=== PATIENT | male | born 1960 | race Caucasian/White ===

== ENCOUNTER 2018-01-23 02:02 | Observation (INO) ==
[2018-01-23 03:49] LABS: BUN/Creatinine Ratio 18 (6-26); Blood Urea Nitrogen 13 mg/dL (6-20); Calcium 9.3 mg/dL (8.6-10.3); Carbon Dioxide 24 mEq/L (23-29); Chloride 105 mEq/L (98-107); Glucose 285 mg/dL (70-105); Osmolality,Calculated 296 (280-300); Potassium 3.4 mEq/L (3.5-5.1); Sodium 138 mEq/L (136-145); Troponin I < 0.03 ng/mL (< 0.04); eGFR For African Americans > 60 (> 60); eGFR For Non-African Americans > 60 (> 60)
--- NOTE | 2018-01-23 04:29 | Emergency Department Note ---
Disposition Clinical Impression: Chest pain Qualifiers: Chest pain type: unspecified Qualified Code(s): R07.9 - Chest pain, unspecified Disposition: Admitted As Inpatient Condition: Fair Chest Pain HPI - General Chief Complaint: ED Chest Pain Stated Complaint: CP Time Seen by Provider: 01/23/18 02:05 Source: patient Vital Signs Reviewed: Yes Nursing Notes Reviewed: Yes - History of Present Illness HPI Narrative: 58-year-old male presents to emergency department after having chest pain a few hours ago in the mid sternal region. Patient states that it feels similar to when he had recent myocardial infarctions. Patient stated that the pain has resolved now. Patient denies any fever, cough, hemoptysis. Severity scale (1-10): 3 - Related Data Home Medications Medication Instructions Recorded Confirmed ALPRAZolam [Xanax 0.5 MG Tablet] 0.5 mg PO BID 07/29/15 01/23/18 Albuterol Sulfate [Albuterol 2 puff IH Q4HR PRN 07/29/15 01/23/18 Inhaler] Budesonide/Formoterol 160/4.5 2 puff IH BIDR PRN 07/29/15 01/23/18 [Symbicort 160/4.5] Fluticasone Propionate [Flovent 1 puff IH BID PRN 07/29/15 01/23/18 Diskus] Aspirin Enteric Coated [Aspirin EC] 81 mg PO DAILY 07/31/15 01/23/18 GlipiZIDE XL (24 HR) [Glucotrol XL] 5 mg PO DAILY 07/31/15 01/23/18 HYDROcodone/Acet 5/325 mg [[place] 1 tab PO Q6H PRN 12/15/15 01/23/18 5-325 mg] Montelukast [Singulair] 10 mg PO DAILY 12/15/15 01/23/18 Rosuvastatin Calcium [Crestor] 10 mg PO DAILY 07/26/16 01/23/18 Metformin HCl [Metformin HCl ER] 500 mg PO DAILY 01/23/18 01/23/18 Allergies Allergy/AdvReac Type Severity Reaction Status Date / Time prednisone AdvReac Mild "ELEVATED Verified 07/26/16 15:55 SUGAR" aspirin AdvReac Nausea Verified 07/26/16 15:55 atorvastatin [From Lipitor] AdvReac Nausea Verified 07/26/16 15:55 metformin AdvReac Nausea Verified 07/26/16 15:55 metoprolol AdvReac Nausea Verified 07/26/16 15:55 All systems ED: reviewed and negative except as stated. Review of Systems: As Per HPI Constitutional: Denies: fever Cardiovascular: Reports: chest pain. Denies: palpitations, syncope Respiratory: Denies: cough, dyspnea, wheezes Gastrointestinal: Denies: abdominal pain, nausea, vomiting Musculoskeletal: Denies: back pain Integumentary: Denies: rash Neurological: Denies: headache, weakness, numbness, paresthesias Chest Pain PMH - Past Medical History Medical history: Reports: asthma, CHF, COPD, diabetes, GERD, hyperlipidemia, hypertension, myocardial infarction, other Surgical history: Reports: other Psychiatric history: Reports: no psych history - Social History Smoking Status: Current some day smoker Alcohol use: Reports: occasionally Drug use: Reports: none Physical Exam - General General appearance: alert, in no apparent distress - Head Head exam: atraumatic, normocephalic - Eye Eye exam: Present: EOMI. Absent: conjunctival injection - ENT ENT exam: normal oropharynx - Neck Neck exam: Present: full ROM, trachea midline - Chest Chest inspection: Present: symmetric chest wall rise - Respiratory Respiratory exam: Present: other (Rhonchi). Absent: respiratory distress - Cardiovascular Cardiovascular exam: Present: regular rate, normal rhythm, normal heart sounds - Abdominal Exam Abdominal exam: Present: soft, Non-Tender - Extremities Exam Extremities exam: Absent: pedal edema - Neurological Exam Neurological exam: Present: alert, oriented X3 - Psychiatric Psychiatric exam: Present: normal affect, normal mood - Skin Skin exam: Present: warm, dry, intact Course Vital Signs Temperature 97.6 F 01/23/18 02:08 Pulse Rate 60 01/23/18 02:08 Respiratory Rate 20 01/23/18 02:08 Blood Pressure 158/95 01/23/18 02:08 O2 Sat by Pulse Oximetry 96 01/23/18 02:08 Temperature 97.6 F 01/23/18 02:08 Pulse Rate 62 01/23/18 05:06 Respiratory Rate 20 01/23/18 05:06 Blood Pressure 132/88 01/23/18 05:06 O2 Sat by Pulse Oximetry 96 01/23/18 05:06 Oxygen Delivery Oxygen Delivery Room Air Chest Pain - MDM Narrative Medical decision making narrative: 58-year-old male presents to emergency department with chest pain. Patient was given aspirin via EMS. Patient not in any acute distress here, hemodynamically stable. Patient has multiple risk factors and has heart score of 4. EKG does not reveal any abnormalities. Troponin is negative. Chest x-ray is normal. Patient was mildly hypokalemic. We replaced the potassium. Initially, patient' s blood pressure is 158/95. It is currently 138/88. We will administer nitroglycerin paste. At this time, we will admit this patient to the hospital for observation. Patient agreed with plan. Chest X-Ray 01/23/18 03:03 IMPRESSION: Negative portable chest. D/ / Anthony Benz MD / Anthony Benz MD Interpreting Provider: Anthony Benz MD Vital Signs Temperature 97.6 F 01/23/18 02:08 Pulse Rate 60 01/23/18 02:08 Respiratory Rate 20 01/23/18 02:08 Blood Pressure 158/95 01/23/18 02:08 O2 Sat by Pulse Oximetry 96 01/23/18 02:08 Temperature 97.6 F 01/23/18 02:08 Pulse Rate 69 01/23/18 03:08 Respiratory Rate 97 01/23/18 02:13 Blood Pressure 138/88 01/23/18 03:08 O2 Sat by Pulse Oximetry 92 01/23/18 03:08 Oxygen Delivery Oxygen Delivery Room Air - Lab Data Result diagrams: 01/23/18 05:15 01/23/18 03:03 Lab Results 01/23/18 01/23/18 Range/Units 03:03 03:03 Sodium 138 (136-145) mEq/L Potassium 3.4 L (3.5-5.1) mEq/L Chloride 105 (98-107) mEq/L Carbon Dioxide 24 (23-29) mEq/L BUN 13 (6-20) mg/dL Creatinine 0.71 (0.70-1.30) mg/dL Est GFR ( Amer) > 60 (> 60) Est GFR (Non-Af Amer) > 60 (> 60) BUN/Creatinine Ratio 18 (6-26) Glucose 285 H (70-105) mg/dL Calculated Osmolality 296 (280-300) Calcium 9.3 (8.6-10.3) mg/dL Troponin I < 0.03 (< 0.04) ng/mL B-Natriuretic Peptide 10 (Less than 100) pg/mL - EKG Data EKG attestation: Yes I reviewed and interpreted this EKG. EKG results narrative: 01/23/2018 2:06 Ventricular rate 61 bpm, CT interval 167 ms, QRS religious 111 ms, QT 413 ms, QTC 450 ms, hepatitis deviation. Sinus rhythm with a ventricular rate of 61 bpm. There is no evidence of any ischemic changes on this electrocardiogram in comparison with one performed on 08/16/2009. Heart Score - Score History: Moderately Suspicious EKG: Normal Age: 45-65 Risk Factors: Equal/Greater than 3 risk factor or history of atherosclerotic disease Troponin: Less than normal limit HEART Score Total: 4 Attestation Statement - Attestation Attestation: I examined this patient and my medical decision-making was reviewed with the Resident Physician. I agree with the documented findings, disposition and treatment plan as described except to the extent set forth below. Findings consistent with chest pain. He does have typical chest pain symptoms. Nitroglycerin as well as aspirin administered. EKG is nondiagnostic at this time. The patient will be admitted for further management. The
[2018-01-23] MEDS ORDERED: *HR* Dextrose 50 % in Water (Syg) 50 ML SYRINGE IVP PRN ×2 (04:43→07:58)
[2018-01-23] MEDS ORDERED: Dextrose Gel 15 GM/37.5 ML TUBE PO PRN ×4 (04:43→07:58)
[2018-01-23] MEDS ORDERED: D5% in Water 1,000 ML IVC PRN ×2 (04:43→07:58)
[2018-01-23] MEDS ORDERED: Nitroglycerin 1 INCH/GM PACKET TP ONE (04:58)
[2018-01-23 05:27] LABS: Basophils # 0.1 K/mcL (0.0-0.2); Basophils % 0.6 %; Eosinophils # 0.4 K/mcL (0.0-0.6); Hematocrit 50.5 % (37.5-50.1); Hemoglobin 17.1 g/dL (12.9-16.9); Immature Granulocytes % 0.4 % (0-4); Lymphocytes # 4.2 K/mcL (0.6-4.6); Lymphocytes % 38.9 %; Mean Corpuscular HGB Conc 33.9 g/dL (31.6-35.5); Mean Corpuscular Hemoglobin 29.8 pg (28.0-33.3); Mean Platelet Volume 10.2 fL (9.4-12.4); Monocytes % 9.5 %; Neutrophils # 5.1 K/mcL (1.6-8.9); Platelet Count 179 K/mcL (140-400); Red Blood Count 5.74 M/mcL (4.19-5.50); Red Cell Distribution Width 12.7 % (11.5-14.5); Segmented Neutrophils % 46.6 %
[2018-01-23] MEDS ORDERED: Insulin LISPRO 300 UNITS/3 ML VIAL SQ SCH (06:00)
[2018-01-23] MEDS ORDERED: Naloxone 0.4 MG/ML INJ IVP PRN (07:52)
[2018-01-23] MEDS ORDERED: FLUTICASONE PROPIONATE IH PRN (07:57)
--- NOTE | 2018-01-23 07:59 | Internal Med History&Physical ---
Date of Encounter: 01/23/18 Time of Encounter: 07:54 Internal Medicine - H&P: HPI History of present illness: Mr. Garner is a 58 year old male Past Med Surg Social Fam HX - Past Medical History Medical history: asthma, CHF, COPD, diabetes, GERD, hyperlipidemia, hypertension , myocardial infarction, other Psychiatric history: no psych history - Past Surgical History Surgical History: other - Social History Smoking Status: Current some day smoker Packs per day: 0.25 Smokeless Tobacco Status: No Alcohol use: occasionally Drug use: none - Family History Son Adopted: No Family Member Ethnicity: Non- Living Status: Still Living Hx Family Cardiac Disorders: No Hx Family Respiratory Disorders: No Hx Family Cancer: No Hx Family GI Disorders: No Hx Family Endocrine Disorder: No Hx Family Neuromuscular Disorders: No Hx Family Neurologic Disorders: No Hx Family HEENT Disorders: No Hx Family Autoimmune Disorders: No Mother Living Status: Hx Family Cardiac Disorders: Yes Hx Family Endocrine Disorder: Yes (DM) Internal Medicine - H&P: Meds ALPRAZolam [Xanax 0.5 MG Tablet] 0.5 mg PO BID PRN 07/29/15 [History] Albuterol Sulfate [Albuterol Inhaler] 2 puff IH Q4HR PRN 07/29/15 [History] Budesonide/Formoterol 160/4.5 [Symbicort 160/4.5] 2 puff IH BIDR PRN 07/29/15 [ History] Fluticasone Propionate [Flovent Diskus] 1 puff IH BID PRN 07/29/15 [History] Aspirin Enteric Coated [Aspirin EC] 81 mg PO DAILY 07/31/15 [History] GlipiZIDE XL (24 HR) [Glucotrol XL] 5 mg PO DAILY 07/31/15 [History] HYDROcodone/Acet 5/325 mg [[place] 5-325 mg] 1 tab PO Q6H PRN 12/15/15 [History] Montelukast [Singulair] 10 mg PO DAILY 12/15/15 [History] Rosuvastatin Calcium [Crestor] 10 mg PO DAILY 07/26/16 [History] Metformin HCl [Metformin HCl ER] 500 mg PO DAILY 01/23/18 [History] 3 Allergy/AdvReac Type Severity Reaction Status Date / Time prednisone AdvReac Mild "ELEVATED Verified 07/26/16 15:55 SUGAR" aspirin AdvReac Nausea Verified 07/26/16 15:55 atorvastatin [From Lipitor] AdvReac Nausea Verified 07/26/16 15:55 metformin AdvReac Nausea Verified 07/26/16 15:55 metoprolol AdvReac Nausea Verified 07/26/16 15:55 All Systems PM: A 10-system review of systems was performed and is negative for pertinent findings except as documented above in the HPI. - Constitutional Vitals: Temp Pulse Resp BP Pulse Ox 97.5 F L 57 18 115/78 94 01/23/18 06:52 01/23/18 06:52 01/23/18 06:52 01/23/18 06:52 01/23/18 06:52 Internal Med - H&P Results - Labs CBC & Chem 7: 01/23/18 05:15 01/23/18 03:03 Labs: Short CBC 01/23/18 Range/Units 05:15 WBC 10.9 (4.3-11.1) K/mcL Hgb 17.1 H (12.9-16.9) g/dL Hct 50.5 H (37.5-50.1) % Plt Count 179 (140-400) K/mcL Neutrophils # 5.1 (1.6-8.9) K/mcL Cardiac Enzymes 01/23/18 Range/Units 05:15 Troponin I < 0.03 (< 0.04) ng/mL - Time Spent With Patient Total time spent is greater than 50% in coordination of care (as documented) at patient's floor/unit and/or counseling patient:
--- NOTE | 2018-01-23 08:15 | Internal Med History&Physical ---
Date of Encounter: 01/23/18 Time of Encounter: 08:09 Internal Medicine - H&P: HPI Chief complaint: CP Admitted From: Home Plans for Post Hospital Care: Home History of present illness: Mr. Garner is a 58 year old male with past medical history of coronary artery disease status post stents 3, diabetes, COPD, hyperlipidemia, thyroid nodules Patient presented to the emergency room chief complaint substernal chest pain started at midnight related 7 x 10 associated with nausea and lightheadedness but nonradiating. Patient checked his blood pressure that was found to be high cannot recall the number and low pulse rate 50s. He came to ER continued to have pain therefore ER physician nitro paste started. In ER troponin negative, EKG with no acute finding. ER physician called on-call hospitalists for the admission to perform cardiac evaluation because of several risk factors. During my evaluation chest pain 0 x 10 but patient has severe headache and requesting to remove Nitropaste. Patient denies fever, chills, nausea, vomiting, dizziness, palpitation, abdominal pain, urinary bowel complaint. Past Med Surg Social Fam HX - Past Medical History Medical history: asthma, CHF, COPD, diabetes, GERD, hyperlipidemia, hypertension , myocardial infarction, other Psychiatric history: no psych history - Past Surgical History Surgical History: other - Social History Smoking Status: Current some day smoker Packs per day: 0.25 Smokeless Tobacco Status: No Alcohol use: occasionally Drug use: none - Family History Son Adopted: No Family Member Ethnicity: Non- Living Status: Still Living Hx Family Cardiac Disorders: No Hx Family Respiratory Disorders: No Hx Family Cancer: No Hx Family GI Disorders: No Hx Family Endocrine Disorder: No Hx Family Neuromuscular Disorders: No Hx Family Neurologic Disorders: No Hx Family HEENT Disorders: No Hx Family Autoimmune Disorders: No Mother Living Status: Hx Family Cardiac Disorders: Yes Hx Family Endocrine Disorder: Yes (DM) Internal Medicine - H&P: Meds ALPRAZolam [Xanax 0.5 MG Tablet] 0.5 mg PO BID PRN 07/29/15 [History] Albuterol Sulfate [Albuterol Inhaler] 2 puff IH Q4HR PRN 07/29/15 [History] Budesonide/Formoterol 160/4.5 [Symbicort 160/4.5] 2 puff IH BIDR PRN 07/29/15 [ History] Fluticasone Propionate [Flovent Diskus] 1 puff IH BID PRN 07/29/15 [History] Aspirin Enteric Coated [Aspirin EC] 81 mg PO DAILY 07/31/15 [History] GlipiZIDE XL (24 HR) [Glucotrol XL] 5 mg PO DAILY 07/31/15 [History] HYDROcodone/Acet 5/325 mg [[place] 5-325 mg] 1 tab PO Q6H PRN 12/15/15 [History] Montelukast [Singulair] 10 mg PO DAILY 12/15/15 [History] Rosuvastatin Calcium [Crestor] 10 mg PO DAILY 07/26/16 [History] Metformin HCl [Metformin HCl ER] 500 mg PO DAILY 01/23/18 [History] 3 Allergy/AdvReac Type Severity Reaction Status Date / Time prednisone AdvReac Mild "ELEVATED Verified 07/26/16 15:55 SUGAR" aspirin AdvReac Nausea Verified 07/26/16 15:55 atorvastatin [From Lipitor] AdvReac Nausea Verified 07/26/16 15:55 metformin AdvReac Nausea Verified 07/26/16 15:55 metoprolol AdvReac Nausea Verified 07/26/16 15:55 All Systems PM: as documented above in the HPI. - Constitutional Vitals: Temp Pulse Resp BP Pulse Ox 97.5 F L 57 18 115/78 94 01/23/18 06:52 01/23/18 06:52 01/23/18 06:52 01/23/18 06:52 01/23/18 06:52 Exam: General appearance: No acute distress, A&O X 3 Head exam: Atraumatic Eye exam: EOMI, PERRLA ENT exam: Moist oral mucosa Neck nontender, supple Respiratory exam: Clear to auscultation bilaterally Cardiovascular exam: Regular rate and rhythm, no systolic murmur Abdominal exam: Soft, nontender, nondistended, positive bowel sounds Extremities exam: No calf tenderness, no pedal edema Present: Skin-no rash, warm, dry, intact Neurological exam: Alert, awake, oriented 3, CN II-XII intact, no focal deficits. No facial droop. Normal speech. Internal Med - H&P Results - Labs CBC & Chem 7: 01/23/18 05:15 01/23/18 03:03 Labs: Short CBC 01/23/18 Range/Units 05:15 WBC 10.9 (4.3-11.1) K/mcL Hgb 17.1 H (12.9-16.9) g/dL Hct 50.5 H (37.5-50.1) % Plt Count 179 (140-400) K/mcL Neutrophils # 5.1 (1.6-8.9) K/mcL Cardiac Enzymes 01/23/18 Range/Units 05:15 Troponin I < 0.03 (< 0.04) ng/mL - Assessment and plan (1) Chest pain Current Visit: Yes Status: Acute Assessment and plan: Rule out ACS. Patient has multiple risk factor CAD status post 3 stent, diabetes mellitus, hypertension, hyperlipidemia, chronic a smoker, positive family history for cardiac disease. Initial troponin and EKG with no acute finding. Serial troponin, telemetry bed, continue aspirin, statin, nitroglycerin, oxygen. Patient needs cardiac ischemic workup therefore Echocardiogram and nuclear stress tests ordered. Retail Business Analyst consulted. Qualifiers: Chest pain type: other chest pain Qualified Code(s): R07.89 - Other chest pain; R07.8 - Other chest pain (2) Diabetes mellitus Current Visit: Yes Status: Chronic Assessment and plan: Accu-Chek, SSI. Diabetes diet Qualifiers: Diabetes mellitus type: type 2 Diabetes mellitus intermediate manager insulin use: without jail use Diabetes mellitus complication status: without complication Qualified Code(s): E11.9 - Type 2 diabetes mellitus without complications (3) Hypertension Current Visit: Yes Status: Chronic Assessment and plan: Monitor. Continue home medicine Qualifiers: Hypertension type: essential hypertension Qualified Code(s): I10 - Essential (primary) hypertension (4) DVT prophylaxis Current Visit: Yes Status: Acute Assessment and plan: SCDs - Time Spent With Patient Total time spent is greater than 50% in coordination of care (as documented) at patient's floor/unit and/or counseling patient: 25 - 35 minutes
[2018-01-23] MEDS: Aspirin Enteric Coated 81 MG Tablet PO SCH (08:55)
[2018-01-23] MEDS: *HR* HYDROcodone/Acet 5/325 mg TABLET PO PRN ×3 (08:56→22:02)
[2018-01-23] MEDS: Budesonide/Formoterol 160/4.5 MDI IH SCH ×2 (11:25→19:47)
[2018-01-23] MEDS: Insulin LISPRO 300 UNITS/3 ML VIAL SQ SCH ×2 (12:05→16:52)
[2018-01-23] MEDS: ALPRAZolam 0.5 MG TABLET PO PRN ×2 (14:43→22:02)
--- NOTE | 2018-01-23 15:34 | Cardiology Consult Note ---
Date of Encounter: 01/23/18 Time of Encounter: 15:30 Assessment and Plan (1) Chest pain Current Visit: No Status: Resolved Atypical but with known extensive hx of CAD. Chemical stress test Qualifiers: Chest pain type: unspecified Qualified Code(s): R07.9 - Chest pain, unspecified Discussion w patient/family: The assessment and plan as outlined above was discussed with the patient and/or family members who expressed understanding and agreement. All questions were answered. Thank you for involving us in the care of your patient. Please call with any questions. History of Present Illness Consult date: 01/23/18 Consult reason: Chest Pain Chief complaint: Chest Pain History of present illness: Mr. Garner is a 58 year old male known Non obstructive CAD involving the proximal LAD (LHC 2015), previous PCI of the proximal RCA with a preserved EF ( 55-60% TTE 2015) presents with chest pain atypical in presentation while resting RSCP non radiating resolved in few 45 minutes. D/W patient the possibility of progression of disease and he accepts a stress test to evaluate for ischemia. Stress test shows previous infarct and mild celena-infarct ischemia involving the mid to apical inferior, inferior lateral, and apex segment. Troponin negative x 3. EKG shows SR with non-specific EKG changes that are unchanged from previous EKG. LHC 12/2015 showed triple vessel CAD. LV normal and has normal contractility EF 55%. Pt had successful PTCA/RERE placement in proximal RCA. LMCA-20% stenosis, LAD-50% proximal and 40% mid, circ-mid patent stents (20% ISR), 30% proximal, 100% 2nd marginal-previous stent occluded. TTE 12/2015 showed an EF of 55-60%. Stress test results reviewed with patient and family. LHC versus medical management discussed with patient. LHC indications, alternatives, risks, and benefits reviewed. Patient prefers medical management. Add Imdur. (Dr. Ashley will also discuss with patient.) Indur indication, use, SE reviewed. He is currently pain free. F/u closely with Dr. Clinton. Past Med Surg Social Fam HX - Past Medical History Medical history: asthma, CHF, COPD, diabetes, GERD, hyperlipidemia, hypertension , myocardial infarction, other Psychiatric history: no psych history - Past Surgical History Surgical History: other - Social History Smoking Status: Current some day smoker Packs per day: 0.25 Smokeless Tobacco Status: No Alcohol use: occasionally Drug use: none - Family History Son Adopted: No Family Member Ethnicity: Non- Living Status: Still Living Hx Family Cardiac Disorders: No Hx Family Respiratory Disorders: No Hx Family Cancer: No Hx Family GI Disorders: No Hx Family Endocrine Disorder: No Hx Family Neuromuscular Disorders: No Hx Family Neurologic Disorders: No Hx Family HEENT Disorders: No Hx Family Autoimmune Disorders: No Mother Living Status: Hx Family Cardiac Disorders: Yes Hx Family Endocrine Disorder: Yes (DM) Medications and Allergies ALPRAZolam [Xanax 0.5 MG Tablet] 0.5 mg PO BID PRN 07/29/15 [History] Budesonide/Formoterol 160/4.5 [Symbicort 160/4.5] 2 puff IH BIDR PRN 07/29/15 [ History] Fluticasone Propionate [Flovent Diskus] 1 puff IH BID PRN 07/29/15 [History] Aspirin Enteric Coated [Aspirin EC] 81 mg PO DAILY 07/31/15 [History] HYDROcodone/Acet 5/325 mg [[place] 5-325 mg] 1 tab PO Q6H PRN 12/15/15 [History] Montelukast [Singulair] 10 mg PO DAILY 12/15/15 [History] Rosuvastatin Calcium [Crestor] 10 mg PO DAILY 07/26/16 [History] Albuterol Sulfate [Albuterol Inhaler] 2 puff IH Q4HR PRN 01/23/18 [History] Dulaglutide [Trulicity] 0.5 ml SQ QWEEK 01/23/18 [History] GlipiZIDE [Glipizide ER] 10 mg PO BID 01/23/18 [History] Metformin HCl [Metformin HCl ER] 500 mg PO DAILY 01/23/18 [History] Nitroglycerin [Nitrostat] 0.4 mg PO Q5MIN PRN 01/23/18 [History] 3 Allergy/AdvReac Type Severity Reaction Status Date / Time atorvastatin [From Lipitor] AdvReac Nausea Verified 01/23/18 09:12 metoprolol AdvReac Nausea Verified 01/23/18 09:12 All Systems Review: The remainder of the systems were reviewed and are negative Physical Examination General: Conversant, No Apparent Distress HEENT: Atraumatic, Normocephaly, Mucus Membranes Moist Neck: No JVD, Normal carotid pulses Cardiac: Reg Rate and Rhythm, Normal S1 and S2, No Murmur Lungs: Normal Breath Sounds, No Wheeze, Rales, Rhonchi Neuro: Alert and responsive, No focal deficits noted Abdomen: Soft, Non-Tender Skin: No rashes noted on visualized skin Musculoskeletal: No Chest Wall Tenderness Extremities: No Clubbing, No Cyanosis, No Edema, Normal Pulses Results 01/23/18 05:15 01/23/18 03:03 Lab Results 01/23/18 01/23/18 01/23/18 05:15 05:15 12:32 WBC 10.9 Hgb 17.1 H Hct 50.5 H Plt Count 179 Troponin I < 0.03 < 0.03 Consult Discharge Plan - Plan Referrals: Villa Chan DO [Primary Care Provider] - 01/30/18 1:30 pm (Please follow up as schedule...)
[2018-01-24] MEDS: Insulin LISPRO 300 UNITS/3 ML VIAL SQ SCH ×5 (00:32→21:55)
[2018-01-24 05:25] LABS: Basophils # 0.1 K/mcL (0.0-0.2); Basophils % 0.6 %; Eosinophils # 0.3 K/mcL (0.0-0.6); Eosinophils % 2.3 %; Hemoglobin 15.9 g/dL (12.9-16.9); Immature Granulocytes % 0.4 % (0-4); Lymphocytes % 37.1 %; Mean Corpuscular HGB Conc 33.8 g/dL (31.6-35.5); Mean Corpuscular Hemoglobin 29.6 pg (28.0-33.3); Mean Corpuscular Volume 87.4 fL (83.0-100.0); Mean Platelet Volume 10.5 fL (9.4-12.4); Monocytes # 0.9 K/mcL (0.0-1.3); Monocytes % 8.8 %; Neutrophils # 5.5 K/mcL (1.6-8.9); Platelet Count 170 K/mcL (140-400); Red Blood Count 5.38 M/mcL (4.19-5.50); Red Cell Distribution Width 12.7 % (11.5-14.5); Segmented Neutrophils % 50.8 %
[2018-01-24] MEDS ORDERED: Regadenoson 0.4 MG/5 ML SYRINGE IVP ONE (05:40)
[2018-01-24 05:47] LABS: BUN/Creatinine Ratio 21 (6-26); Blood Urea Nitrogen 13 mg/dL (6-20); Calcium 9.2 mg/dL (8.6-10.3); Carbon Dioxide 24 mEq/L (23-29); Chloride 109 mEq/L (98-107); Chol/HDL Ratio 6.5 (0-4.9); Cholesterol 196 mg/dL (< 200); Glucose 159 mg/dL (70-105); HDL Cholesterol 30 mg/dL (40-59); LDL Cholesterol,Calculated 136 mg/dL (0-99); Osmolality,Calculated 293 (280-300); Potassium 4.2 mEq/L (3.5-5.1); Sodium 140 mEq/L (136-145); Triglycerides 150 mg/dL (< 150); eGFR For African Americans > 60 (> 60); eGFR For Non-African Americans > 60 (> 60)
[2018-01-24] MEDS: *HR* HYDROcodone/Acet 5/325 mg TABLET PO PRN ×2 (07:25→17:10)
[2018-01-24] MEDS: ALPRAZolam 0.5 MG TABLET PO PRN ×2 (09:57→22:07)
[2018-01-24] MEDS: Aspirin Enteric Coated 81 MG Tablet PO SCH (09:57)
[2018-01-24] MEDS: Budesonide/Formoterol 160/4.5 MDI IH SCH ×2 (11:02→20:43)
--- NOTE | 2018-01-24 12:48 | Internal Med Progress Note ---
Date of Encounter: 01/24/18 Time of Encounter: 12:43 - Assessment and plan (1) Chest pain Current Visit: Yes Status: Acute Assessment and plan: 58-year-old male with extensive cardiac disease including triple-vessel disease with stents presented with acute onset of chest pain. - CV risk factors including smoking, hyperlipidemia, diabetes, and family history of CAD. Risk factor modification including smoke sensation, continue lipid-lowering agent, and the tight control blood sugar were discussed with patient. Repeat her lipid panel showed LDL around 140( target <70), patient cannot tolerate statins because of severe muscle pain, currently he is on low dose of rosuvastatin 10 mg daily, consider adding Zetia if it is okay with patient insurance. Blood pressure was well controlled, no need to add any MARY inhibitor or beta sury. Continue home aspirin. - TTE's this morning revealed normal EF, moderate diastolic dysfunction, patient euvolemic on physical exam. - Pending stress nuclear test. - Cardiology following. Qualifiers: Chest pain type: other chest pain Qualified Code(s): R07.89 - Other chest pain; R07.8 - Other chest pain (2) Diabetes mellitus Current Visit: Yes Status: Chronic Assessment and plan: Glucose well controlled, continue current insulin regimen. Qualifiers: Diabetes mellitus type: type 2 Diabetes mellitus terminal carman insulin use: without halfway use Diabetes mellitus complication status: without complication Qualified Code(s): E11.9 - Type 2 diabetes mellitus without complications (3) Hypertension Current Visit: Yes Status: Chronic Assessment and plan: BP well controlled, no need for medications, continue low-salt diet. Qualifiers: Hypertension type: essential hypertension Qualified Code(s): I10 - Essential (primary) hypertension (4) DVT prophylaxis Current Visit: Yes Status: Acute Assessment and plan: SCDs - Time Spent With Patient Total time spent is greater than 50% in coordination of care (as documented) at patient's floor/unit and/or counseling patient: Greater than 35 minutes - Subjective Interval history: Patient seen and examined in room, he has no chest pain currently. - Constitutional Vitals: Temp Pulse Resp BP Pulse Ox 98.2 F 63 16 110/77 93 01/24/18 11:02 01/24/18 11:02 01/24/18 11:02 01/24/18 11:02 01/24/18 11:02 General appearance: Present: A&O X 3 Exam: PHYSICAL EXAMINATION: GENERAL APPEARANCE: The patient is alert, oriented and in no acute distress. HEENT: Head is normocephalic. The sinuses are nontender. Pupils are equal and reactive. The nares are patent. Oropharynx clear without lesions. NECK: Supple without lymphadenopathy. HEART: Regular rate and rhythm. LUNGS: No crackles or wheezes are heard. ABDOMEN: Soft, nontender, nondistended with good bowel sounds heard. Inguinal area is normal. EXTREMITIES: Without cyanosis, clubbing or edema. NEUROLOGICAL: Gross nonfocal. SKIN: Warm and dry without any rash. Internal Medicine: Result - Labs CBC & Chem 7: 01/24/18 04:59 01/24/18 04:59 Labs: Short CBC 01/24/18 Range/Units 04:59 WBC 10.7 (4.3-11.1) K/mcL Hgb 15.9 (12.9-16.9) g/dL Hct 47.0 (37.5-50.1) % Plt Count 170 (140-400) K/mcL Neutrophils # 5.5 (1.6-8.9) K/mcL BMP 01/24/18 04:59 Sodium 140 Potassium 4.2 Chloride 109 H Carbon Dioxide 24 BUN 13 Creatinine 0.62 L Glucose 159 H Calcium 9.2 Cardiac Enzymes 01/23/18 01/23/18 Range/Units 12:32 18:03 Troponin I < 0.03 0.03 (< 0.04) ng/mL - Impressions Impressions Echocardiogram 01/23/18 07:56 Impressions: LVEF 60-65%. Normal LV chamber size, wall thickness and function. Moderate left ventricular diastolic dysfunction. Normal right ventricular structure and function. No evidence of pulmonary hypertension. No significant valvular dysfunction. Left Ventricular Wall Motion: Rest Echo Findings All wall segments showed normal motion. Findings: Study Quality * Technically adequate exam. ECG Findings * Normal sinus rhythm. Left Ventricle * LVEF 60-65%. * Normal LV chamber size, wall thickness and function. * Moderate left ventricular diastolic dysfunction. Right Ventricle * Normal right ventricular structure and function. Left Atrium * Mildly dilated left atrium. Right Atrium * Normal right atrial size. Aortic Valve * Aortic valve not well visualized. * No aortic regurgitation. * No aortic stenosis. Mitral Valve * Normal mitral valve structure and function. * No mitral regurgitation. * No mitral stenosis. Tricuspid Valve * Normal tricuspid valve structure and function. * Trace tricuspid regurgitation. * No evidence of pulmonary hypertension. Pulmonic Valve * Pulmonic valve is not well visualized. * No pulmonic regurgitation. Aorta * Normally sized aortic root. Pericardium * The pericardium appears normal. IVC * Normal IVC dimensions and inspiratory collapse. Pulmonary Artery * Normal visualized portions of the main pulmonary artery. Consult Discharge Plan - Plan Referrals: Villa Chan DO [Primary Care Provider] - 01/30/18 1:30 pm (Please follow up as schedule...)
--- NOTE | 2018-01-24 13:31 | Cardiology Progress Note ---
Date of Encounter: 01/24/18 Time of Encounter: 13:29 Assessment and Plan (1) Chest pain Current Visit: Yes Status: Acute C/o chest pain. H/o CAD s/p previous PCI, most recently in 2015. Moderate LAD disease remaining at that time. Stress test is pending. TTE shows preserved EF, 60-65%, moderate diastolic dysfunction, and no significant valvular disease. History of abnormal stress test 07/2016 that was medically managed. Stress test 07/27/16 - previous infarct and mild celena-infarct ischemia involving the mid to apical inferior, inferior lateral, and apex segment. LHC 12/2015 showed triple vessel CAD. LV normal and has normal contractility EF 55%. Pt had successful PTCA/RERE placement in proximal RCA. LMCA-20% stenosis, LAD-50% proximal and 40% mid, circ-mid patent stents (20% ISR), 30% proximal, 100% 2nd marginal-previous stent occluded. TTE 12/2015 showed an EF of 55-60%. Further recommendation pending stress test. Qualifiers: Chest pain type: unspecified Qualified Code(s): R07.9 - Chest pain, unspecified (2) CAD (coronary artery disease) Current Visit: No Status: Chronic S/p previous PCI. Continue asa, statin. Not taking bb due to allergy. Qualifiers: Coronary Disease-Associated Artery/Lesion type: bypass graft [place] vs. transplanted heart: [place] heart Associated angina: with stable angina Qualified Code(s): I25.708 - Atherosclerosis of coronary artery bypass graft(s) , unspecified, with other forms of angina pectoris Discussion w patient/family: The assessment and plan as outlined above was discussed with the patient and/or family members who expressed understanding and agreement. All questions were answered. Thank you for involving us in the care of your patient. Please call with any questions. Subjective Principal diagnosis: Chest pain Interval history: Patient seen in stress lab. C/o left arm pain prior to starting stress test and was given pain medication. Pain relieved with pain medication. Stress test pending. Objective Vital Signs, Last 4 Hours Temp Pulse Resp BP Pulse Ox 01/24/18 11:02 98.2 F 63 16 110/77 93 General: Conversant, No Apparent Distress HEENT: Atraumatic, Normocephaly, Mucus Membranes Moist Neck: No JVD, Normal carotid pulses Cardiac: Reg Rate and Rhythm, Normal S1 and S2, No Murmur Lungs: Normal Breath Sounds, No Wheeze, Rales, Rhonchi Neuro: Alert and responsive, No focal deficits noted Abdomen: Soft, Non-Tender Skin: No rashes noted on visualized skin Musculoskeletal: No Chest Wall Tenderness Extremities: No Clubbing, No Cyanosis, No Edema, Normal Pulses Results 01/24/18 04:59 01/24/18 04:59 Lab Results 01/23/18 01/23/18 01/24/18 12:32 18:03 04:59 WBC 10.7 Hgb 15.9 Hct 47.0 Plt Count 170 Sodium Potassium Chloride Carbon Dioxide BUN Creatinine Glucose Calcium Troponin I < 0.03 0.03 01/24/18 04:59 WBC Hgb Hct Plt Count Sodium 140 Potassium 4.2 Chloride 109 H Carbon Dioxide 24 BUN 13 Creatinine 0.62 L Glucose 159 H Calcium 9.2 Troponin I - Imaging and Cardiology Stress Test: pending Echo: report reviewed - EKG Interpretation EKG results cardiology: personally reviewed Consult Discharge Plan - Plan Referrals: Villa Chan DO [Primary Care Provider] - 01/30/18 1:30 pm (Please follow up as schedule...)
--- NOTE | 2018-01-24 22:57 | Electrocardiograph Report ---
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
[2018-01-25] MEDS: *HR* HYDROcodone/Acet 5/325 mg TABLET PO PRN ×3 (00:24→16:36)
[2018-01-25 04:44] LABS: BUN/Creatinine Ratio 19 (6-26); Blood Urea Nitrogen 13 mg/dL (6-20); Calcium 9.2 mg/dL (8.6-10.3); Carbon Dioxide 27 mEq/L (23-29); Chloride 106 mEq/L (98-107); Glucose 122 mg/dL (70-105); Osmolality,Calculated 289 (280-300); Potassium 4.1 mEq/L (3.5-5.1); Sodium 139 mEq/L (136-145); eGFR For African Americans > 60 (> 60); eGFR For Non-African Americans > 60 (> 60)
[2018-01-25] MEDS: *HR* Enoxaparin 40 MG/0.4 ML SYRINGE SQ SCH (05:46)
[2018-01-25] MEDS: Budesonide/Formoterol 160/4.5 MDI IH SCH ×2 (08:01→19:28)
[2018-01-25] MEDS: Insulin LISPRO 300 UNITS/3 ML VIAL SQ SCH ×4 (08:28→21:27)
[2018-01-25] MEDS: Aspirin Enteric Coated 81 MG Tablet PO SCH (08:49)
[2018-01-25] MEDS: ALPRAZolam 0.5 MG TABLET PO PRN (08:49)
--- NOTE | 2018-01-25 14:11 | Internal Med Progress Note ---
Date of Encounter: 01/25/18 Time of Encounter: 14:00 - Assessment and plan (1) Unstable angina Current Visit: Yes Status: Acute Assessment and plan: Data: Stress test 07/27/16 - previous infarct and mild celena-infarct ischemia involving the mid to apical inferior, inferior lateral, and apex segment. LHC 12/2015 showed triple vessel CAD. LV normal and has normal contractility EF 55%. Pt had successful PTCA/RERE placement in proximal RCA. LMCA-20% stenosis, LAD-50% proximal and 40% mid, circ-mid patent stents (20% ISR), 30% proximal, 100% 2nd marginal-previous stent occluded. TTE 12/2015 showed an EF of 55-60%. Stress test on 01/24/2018 showed EF 61%, was negative for stress-induced EKG changes but had a medium-sized moderate intensity partially different reversible inferior perfusion defect suggestive of a prior infarct with celena- infarct ischemia and mostly reversible defect involving the mid anterior, all apical segments and apex suggestive of ischemia. Echocardiogram on 01/23/2018 showed EF 60-65%, normal left ventricular chamber size, thickness and function. Moderate left ventricle diastolic dysfunction, normal right ventricular structure and function, no evidence of pulmonary hypertension, no valvulopathy. Plan: Continue aspirin and Plavix Cardiology evaluation pending Patient reports hypertension and adverse effects from the ages beta blockers that have been tried in the past. I would defer this cardiology. (2) Diabetes mellitus Current Visit: Yes Status: Chronic Assessment and plan: Glucose well controlled, continue current insulin regimen. Qualifiers: Diabetes mellitus type: type 2 Diabetes mellitus longwall foreman insulin use: without detention use Diabetes mellitus complication status: without complication Qualified Code(s): E11.9 - Type 2 diabetes mellitus without complications (3) Hypertension Current Visit: Yes Status: Chronic Assessment and plan: BP well controlled, no need for medications, continue low-salt diet. Qualifiers: Hypertension type: essential hypertension Qualified Code(s): I10 - Essential (primary) hypertension (4) DVT prophylaxis Current Visit: Yes Status: Acute Assessment and plan: SCDs - Time Spent With Patient Total time spent is greater than 50% in coordination of care (as documented) at patient's floor/unit and/or counseling patient: 25 - 35 minutes - Subjective Interval history: Chest pain has resolved. No events overnight. No new complaints. Waiting for cardiology to see him today. - Constitutional Vitals: Temp Pulse Resp BP Pulse Ox 98.3 F 60 16 116/75 93 01/25/18 10:43 01/25/18 10:43 01/25/18 10:43 01/25/18 10:43 01/25/18 10:43 General appearance: Present: A&O X 3 Exam: Physical exam Gen: Comfortable, laying in bed, in no visible distress HEENT: Normocephalic, atraumatic. No conjunctival icterus. Moist oral mucosa. Neck: Supple Lungs: Clear to auscultation, no foreign sounds Heart: Normal S1-S2, no murmurs rubs or gallops Abdomen: Normoactive bowel sounds, no guarding rigidity or tenderness Extremities: No edema clubbing or cyanosis Neuro: Alert oriented 3, no focal deficits Skin: No skin lesions Internal Medicine: Result - Labs CBC & Chem 7: 01/24/18 04:59 01/25/18 03:21 Labs: BMP 01/25/18 03:21 Sodium 139 Potassium 4.1 Chloride 106 Carbon Dioxide 27 BUN 13 Creatinine 0.69 L Glucose 122 H Calcium 9.2 Consult Discharge Plan - Plan Referrals: Villa Chan DO [Primary Care Provider] - 01/30/18 1:30 pm (Please follow up as schedule...)
[2018-01-26] MEDS: *HR* HYDROcodone/Acet 5/325 mg TABLET PO PRN ×2 (01:03→09:09)
[2018-01-26] MEDS: *HR* Enoxaparin 40 MG/0.4 ML SYRINGE SQ SCH (06:17)
[2018-01-26 07:41] VITALS: BP 122/86
[2018-01-26] MEDS: Insulin LISPRO 300 UNITS/3 ML VIAL SQ SCH (07:46)
[2018-01-26] MEDS: ALPRAZolam 0.5 MG TABLET PO PRN (09:08)
[2018-01-26] MEDS: Aspirin Enteric Coated 81 MG Tablet PO SCH (09:08)
--- NOTE | 2018-01-26 09:16 | Internal Med Progress Note ---
Date of Encounter: 01/26/18 Time of Encounter: 09:00 - Assessment and plan (1) Unstable angina Current Visit: Yes Status: Acute Assessment and plan: Data: Stress test 07/27/16 - previous infarct and mild celena-infarct ischemia involving the mid to apical inferior, inferior lateral, and apex segment. LHC 12/2015 showed triple vessel CAD. LV normal and has normal contractility EF 55%. Pt had successful PTCA/RERE placement in proximal RCA. LMCA-20% stenosis, LAD-50% proximal and 40% mid, circ-mid patent stents (20% ISR), 30% proximal, 100% 2nd marginal-previous stent occluded. TTE 12/2015 showed an EF of 55-60%. Stress test on 01/24/2018 showed EF 61%, was negative for stress-induced EKG changes but had a medium-sized moderate intensity partially different reversible inferior perfusion defect suggestive of a prior infarct with celena- infarct ischemia and mostly reversible defect involving the mid anterior, all apical segments and apex suggestive of ischemia. Echocardiogram on 01/23/2018 showed EF 60-65%, normal left ventricular chamber size, thickness and function. Moderate left ventricle diastolic dysfunction, normal right ventricular structure and function, no evidence of pulmonary hypertension, no valvulopathy. Plan: Continue aspirin and Plavix Cardiology evaluation pending Patient reports hypertension and adverse effects from beta blockers that have been tried in the past. I would defer starting a beta sury to cardiology. (2) Diabetes mellitus Current Visit: Yes Status: Chronic Assessment and plan: Glucose well controlled, continue current insulin regimen. Qualifiers: Diabetes mellitus type: type 2 Diabetes mellitus penitentiary insulin use: without penitentiary use Diabetes mellitus complication status: without complication Qualified Code(s): E11.9 - Type 2 diabetes mellitus without complications (3) Hypertension Current Visit: Yes Status: Chronic Assessment and plan: BP well controlled, no need for medications, continue low-salt diet. Qualifiers: Hypertension type: essential hypertension Qualified Code(s): I10 - Essential (primary) hypertension (4) DVT prophylaxis Current Visit: Yes Status: Acute Assessment and plan: SCDs - Time Spent With Patient Total time spent is greater than 50% in coordination of care (as documented) at patient's floor/unit and/or counseling patient: 25 - 35 minutes - Subjective Interval history: Chest pain has resolved. No events overnight. No new complaints. Waiting for cardiology to see him today. Refused Lovenox today. - Constitutional Vitals: Temp Pulse Resp BP Pulse Ox 97.4 F L 58 17 122/86 95 01/26/18 07:34 01/26/18 07:34 01/26/18 07:34 01/26/18 07:34 01/26/18 07:34 General appearance: Present: A&O X 3 Exam: Physical exam Gen: Comfortable, laying in bed, in no visible distress HEENT: Normocephalic, atraumatic. No conjunctival icterus. Moist oral mucosa. Neck: Supple Lungs: Clear to auscultation, no foreign sounds Heart: Normal S1-S2, no murmurs rubs or gallops Abdomen: Normoactive bowel sounds, no guarding rigidity or tenderness Extremities: No edema clubbing or cyanosis Neuro: Alert oriented 3, no focal deficits Skin: No skin lesions Internal Medicine: Result - Labs CBC & Chem 7: 01/24/18 04:59 01/25/18 03:21 Consult Discharge Plan - Plan Referrals: Villa Chan DO [Primary Care Provider] - 01/30/18 1:30 pm (Please follow up as schedule...)
[2018-01-26] MEDS: Budesonide/Formoterol 160/4.5 MDI IH SCH (10:26)
--- NOTE | 2018-01-26 10:35 | Discharge Summary ---
- NOTES TO OUTPATIENT PROVIDER Notes to Outpatient Provider: Follow-up with Cardiology within 2 weeks of discharge Orders not resulted at time of discharge: Pending orders 01/24/18 08:05 NM aviva perf SPECT multi [NM] Routine Date of Encounter: 01/26/18 Time of Encounter: 08:30 - Discharge Diagnosis (1) Unstable angina Priority: Primary Status: Acute Assessment and Plan: Data: Stress test 07/27/16 - previous infarct and mild celena-infarct ischemia involving the mid to apical inferior, inferior lateral, and apex segment. LHC 12/2015 showed triple vessel CAD. LV normal and has normal contractility EF 55%. Pt had successful PTCA/RERE placement in proximal RCA. LMCA-20% stenosis, LAD-50% proximal and 40% mid, circ-mid patent stents (20% ISR), 30% proximal, 100% 2nd marginal-previous stent occluded. TTE 12/2015 showed an EF of 55-60%. Stress test on 01/24/2018 showed EF 61%, was negative for stress-induced EKG changes but had a medium-sized moderate intensity partially different reversible inferior perfusion defect suggestive of a prior infarct with celena- infarct ischemia and mostly reversible defect involving the mid anterior, all apical segments and apex suggestive of ischemia. Echocardiogram on 01/23/2018 showed EF 60-65%, normal left ventricular chamber size, thickness and function. Moderate left ventricle diastolic dysfunction, normal right ventricular structure and function, no evidence of pulmonary hypertension, no valvulopathy. Plan: Plavix added to aspirin during this admission. Patient refuses inpatient left heart catheterization. He will follow-up with cardiology outpatient Patient reports hypertension and adverse effects from beta blockers that have been tried in the past. I would defer starting a beta sury to cardiology. (2) Diabetes mellitus Priority: Secondary Status: Chronic Assessment and Plan: Glucose well controlled Qualifiers: Diabetes mellitus type: type 2 Diabetes mellitus penitentiary insulin use: without ferry terminal agent use Diabetes mellitus complication status: without complication Qualified Code(s): E11.9 - Type 2 diabetes mellitus without complications (3) Hypertension Priority: Secondary Status: Chronic Assessment and Plan: BP well controlled, no need for medications, continue low-salt diet. Qualifiers: Hypertension type: essential hypertension Qualified Code(s): I10 - Essential (primary) hypertension Hospital course: Mr. Garner is a 58 year old male With a prior history of asthma, CHF, COPD, diabetes, GERD, hyperlipidemia, hypertension, myocardial infarction presented on 01/23/2018 with substernal chest pain that started at midnight, 7 on 10 intensity with nausea and lightheadedness. There was no radiation reported. He also noted his pulse was in the low 50s. Upon arrival in the emergency room , he continued to have pain. Nitropaste was started. Troponin I was negative. EKG showed no ST or T-wave changes. He was subsequently admitted for observation. Troponin I did not show any further increase. His nuclear exercise stress test was performed on 01/24/2018 showed a EF 61%, was negative for stress-induced EKG changes but had a medium-sized moderate intensity partially different reversible inferior perfusion defect suggestive of a prior infarct with celena-infarct ischemia and mostly reversible defect involving the mid anterior, all apical segments and apex suggestive of ischemia.Echocardiogram on 01/23/2018 showed EF 60-65%, normal left ventricular chamber size, thickness and function. Moderate left ventricle diastolic dysfunction, normal right ventricular structure and function, no evidence of pulmonary hypertension, no valvulopathy. Cardiology was consult and recommended left heart catheterization. However, patient wishes to consult with his outpatient parquet floor layer's helper prior to any further intervention. Plavix was loaded and added to the current aspirin regimen. He is off beta blockers as he reports multiple adverse effects with different beta blockers in the past. His statin dose was increased. He will follow-up with his outpatient parquet floor layer's helper Discharge discussed with: patient - Time Spent with Patient Total time spent providing and/or coordinating discharge services: Greater than 30 minutes - Discharge Medications Prescriptions: Clopidogrel [Plavix] 75 mg PO DAILY #30 tablet Rosuvastatin [Crestor] 20 mg PO HS #30 tablet Home Medications: ALPRAZolam [Xanax 0.5 MG Tablet] 0.5 mg PO BID PRN 07/29/15 [History] Budesonide/Formoterol 160/4.5 [Symbicort 160/4.5] 2 puff IH BIDR PRN 07/29/15 [ History] Fluticasone Propionate [Flovent Diskus] 1 puff IH BID PRN 07/29/15 [History] Aspirin Enteric Coated [Aspirin EC] 81 mg PO DAILY 07/31/15 [History] HYDROcodone/Acet 5/325 mg [Rye 5-325 mg] 1 tab PO Q6H PRN 12/15/15 [History] Dulaglutide [Trulicity] 0.5 ml SQ QWEEK 01/23/18 [History] GlipiZIDE [Glipizide ER] 10 mg PO BID 01/23/18 [History] Metformin HCl [Metformin HCl ER] 500 mg PO DAILY 01/23/18 [History] Nitroglycerin [Nitrostat] 0.4 mg PO Q5MIN PRN 01/23/18 [History] Albuterol Sulfate [Albuterol Inhaler] 2 puff IH Q4HR PRN inhaler 01/26/18 [Rx] Clopidogrel [Plavix] 75 mg PO DAILY #30 tablet 01/26/18 [Rx] Rosuvastatin [Crestor] 20 mg PO HS #30 tablet 01/26/18 [Rx] Allergies/Adverse Reactions: 3 Allergy/AdvReac Type Severity Reaction Status Date / Time atorvastatin [From Lipitor] AdvReac Nausea Verified 01/23/18 09:12 metoprolol AdvReac Nausea Verified 01/23/18 09:12 Date of admission: 01/23/18 04:54 Primary care physician: Ayleen Tna Consults: 01/23/18 08:52 Consult to Cardiology [CONS] Routine Comment: Consulting Provider: Cardiology [place] Reason for Consult: CP r/o ACS Call Completed: Yes 01/26/18 10:23 Consult to Cardiology [CONS] Routine Comment: Consulting Provider: Cesar Marquez Reason for Consult: Abnormal EKG Call Completed: Yes Discharging clinician: Talia Reynolds Anticipated date of discharge: 01/26/18 - Constitutional Vitals: Temp Pulse Resp BP Pulse Ox 97.4 F L 58 17 122/86 95 01/26/18 07:34 01/26/18 07:34 01/26/18 07:34 01/26/18 07:34 01/26/18 09:12 General appearance: Present: A&O X 3 Exam: Physical exam Gen: Comfortable, laying in bed, in no visible distress HEENT: Normocephalic, atraumatic. No conjunctival icterus. Moist oral mucosa. Neck: Supple Lungs: Clear to auscultation, no foreign sounds Heart: Normal S1-S2, no murmurs rubs or gallops Abdomen: Normoactive bowel sounds, no guarding rigidity or tenderness Extremities: No edema clubbing or cyanosis Neuro: Alert oriented 3, no focal deficits Skin: No skin lesions - Patient Status Disposition: Home, Self-Care Condition: Good Functional capacity at discharge: independent ambulation Overall status at discharge: patient is progressing back to baseline - Discharge Instructions Follow Up With: Villa Chan DO [Primary Care Provider] - 01/30/18 1:30 pm (Please follow up as schedule...) Additional Instructions: Must follow up with cardiology within 1-2 weeks. - Diet and Activity Activity: resume usual activities as tolerated Diet: low fat, low cholesterol
== END 2018-01-26 11:47 | disposition home or self-care (01) ==
LOC: EMEROO 02:02 → 2ANU 02:02
PROVIDERS: ADMIT Internal Medicine; ATTEND Internal Medicine

== ENCOUNTER 2018-02-11 09:33 | Inpatient (IN) ==
[2018-02-11] MEDS ORDERED: 0.9 % Sodium Chloride 1,000 ML ONE ×2 (09:56→11:39)
--- NOTE | 2018-02-11 11:05 | Pre-Sedation Evaluation ---
Pre-sedation evaluation - Pre-sedation checklist Date of procedure: 02/11/18 Procedure: Heart Cath Recent Vitals: Last Vital Signs Temp 97.4 F L 02/11/18 09:57 Pulse 61 02/11/18 09:57 Resp 16 02/11/18 09:57 BP 127/88 02/11/18 09:57 Pulse Ox 92 02/11/18 09:57 H&P (including ROS) documented in medical record: Yes Previous reaction to sedatives/anesthetics: No Dietary Status: NPO after Midnight Dentition: No loose teeth or bridges ASA Classification *see protocol: CLASS II-Mild systemic disease Plan of Care: Pt appropriate candidate for procedure/moderate/conscious sedation , Risks/benefits of procedure/sedation discussed w/ patient/family
--- NOTE | 2018-02-11 11:11 | History & Physical Report ---
Date of Encounter: 02/11/18 Time of Encounter: 11:00 24 Hour HP Update - Instructions Instructions: If the History and Physical is less than 30 days old and was completed prior to A.M. admission and or procedure and has NOT been updated on calendar day of procedure please complete this update prior to performing procedure. - Update Patient reports changes in Medical Condition: No Changes in examination, assessment, or condition: No Changes in Medication: No Preop tests/diagnostics Reviewed: Yes Surgery Remains Indicated: Yes Consent for Planned Operative Procedure(s) Verified: Yes
[2018-02-11] MEDS ORDERED: *HR* Heparin 10,000 UNIT/10 ML VIAL ONE (11:38)
[2018-02-11] MEDS ORDERED: Verapamil 5 MG/2 ML VIAL ONE (11:38)
[2018-02-11] MEDS ORDERED: Heparin 1,000 UNITS/500 mL 500 ML ONE (11:38)
[2018-02-11] MEDS ORDERED: Nitroglycerin 1,000 MCG/10 ML VIAL IV ONE (11:39)
[2018-02-11] MEDS ORDERED: ISOVUE-370 200 ML INFUS..BTL IV ONE (11:39)
[2018-02-11] MEDS ORDERED: *HR* FentaNYL (PF) 100 MCG/2 ML VIAL ONE (12:03)
[2018-02-11] MEDS ORDERED: *HR* Midazolam HCl 2 MG/2 ML VIAL ONE ×2 (12:04→12:16)
[2018-02-11] MEDS ORDERED: Acetaminophen 325 MG TABLET PO PRN (12:32)
[2018-02-11] MEDS ORDERED: Budesonide/Formoterol 160/4.5 MDI IH PRN (12:34)
[2018-02-11] MEDS ORDERED: *HR* Heparin 5,000 UNIT/ML VIAL IVP PRN ×2 (12:35)
[2018-02-11] MEDS ORDERED: *HR* Heparin 5,000 UNIT/ML VIAL IVP ONE (12:35)
[2018-02-11] MEDS ORDERED: D5% in Water 1,000 ML IVC PRN (12:36)
[2018-02-11] MEDS ORDERED: *HR* Dextrose 50 % in Water (Syg) 50 ML SYRINGE IVP PRN (12:36)
[2018-02-11] MEDS ORDERED: Dextrose Gel 15 GM/37.5 ML TUBE PO PRN ×2 (12:36)
--- NOTE | 2018-02-11 13:40 | Invasive Diagnostic Lab Proc ---
Name: Geovanni Garner Date of Study: 02/11/2018 Date: 1960 Ht: 67.0in Medical Record#: [id number] Age: 58 Wt: 204.37lb Gender: Male BSA: 2.04 Order #: [id number] BMI: 32 Physicians Procedure Physician: Frank Clinton MD, FACC Referring MD: Villa Chan DO Referring MD: Staff Name Position Time In Cherie Henao RN Pre-Op Nurse Yoselin Romero RN Pre-Op Nurse Cheko Landin RT (R) Pre op rt Kathya Anand RN Medical Supervisor 12:15 PM Kayden Lemos RN Monitor 12:15 PM Karishma Olivier RT (R) Scrub 12:15 PM Indications Indication Abnormal Test - Stress Procedures Performed Procedure L HRT ARTERY/VENTRICLE ANGIO Pre-Procedure Checklist Informed consent is complete signed and on chart. H&P is on chart. ID band is on and ID verified with patient. Patient NPO for procedure The procedure was described for the patient and questions were answered. Blood Pressure: 127/88 ECG is on chart. Rhythm: NSR Plan of Care Patient will tolerate the procedure without complications. Adequate level of comfort will be maintained. Hemodynamics will remain stable Patient will recover from procedure without complications. Respiratory function will be maintained. Cardiac rhythm will remain stable. Patient temperature will be maintained. Patient and/or family have verbalized understanding of the procedure. Patient Education Chief Complaint/Reason for Test: Cardiac Cath Developmental Category: Adult (18-64 years) Developmentally Appropriate for Age: Yes Learning Barriers: None Education Needs: Procedure Education Method: Verbal Information Taught: Cardiac Cath Educational Evaluation: Able to repeat information Intravenous Access Time IV Size Location DC'd Fluid/Drip Rate Units RN 10:06 AM Started with 20g 1 1/4" Rt Antecubital 0.9NaCl 50 ml/hr Cherie Henao RN Allergies aspirin prednisone metoprolol metformin atorvastatin Vital Signs Time BP (mmHg) HR (bpm) O2 Sat. RR (bpm) LOC 09:48 AM 127 / 88 61 92 % 16 5 = Fully awake and oriented or at pre-proc level 12:02 PM / % 5 = Fully awake and oriented or at pre-proc level 12:11 PM / % 5 = Fully awake and oriented or at pre-proc level 12:11 PM / % 4 = Oriented but drowsy 12:08 PM 133 / 82 60 94 % 01:02 PM 100 / 76 62 93 % 16 5 = Fully awake and oriented or at pre-proc level 01:15 PM 116 / 80 63 94 % 16 5 = Fully awake and oriented or at pre-proc level Procedural Medications Time Medication Dose Units Method Given By 12:11 PM Versed 2 mg Intravenous Kathya Anand RN 12:12 PM Fentanyl 50 mcg Intravenous Kathya Anand RN 12:14 PM Lidocaine 2% 10 ml Subcutaneous Frank Clinton MD, FACC 12:16 PM Versed 1 mg Intravenous Kathya Anand RN 12:24 PM Nitroglycerin 200 mcg Frank Clinton MD ASA Classification: CLASS II- Mild systemic disease (i.e. well-controlled diabetes, hypertension, asthma, cigarette smoking) Zachary Score Preprocedure Postprocedure Activity 2- Moves 4 extremities sustained head lift Activity 2- Moves 4 extremities sustained head lift Circulation 2- SBP +/= 20 points of pre-anesthetic level Circulation 2- SBP +/= 20 points of pre-anesthetic level Consciousness 2- Awake and alert oriented x 3 Consciousness 2- Awake and alert oriented x 3 O2 Saturation 2- Able to maintain O2 satruation of 92% on room air O2 Saturation 2- Able to maintain O2 satruation of 92% on room air Respiratory 2- Able to deep breathe and cough well Respiratory 2- Able to deep breathe and cough well Total Score 10 Total Score 10 Contrast Agent: Isovue Diagnostic Contrast: 70 ml Total Contrast: 70 ml Fluoro Dose: 317 mGy Procedure Log Time Note Enter By 09:52 AM Risk for fall? Yes, Medications (change in amt./frequency,newly prescribed,potential combinations) [email or web address] 09:52 AM Evidence of mental, physical, or emotional abuse? No [email or web address] 09:52 AM Does patient have suicidal ideations? 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 [email or web address] 12:02 PM Procedure start 12:02 [email or web address] 12:02 PM Time: 12: Patient comfortable and pain free: Yes [email or web address] 12:02 PM Time: 12:02LOC: 5 = Fully awake and oriented or at pre-proc level [email or web address] 12:08 PM NIBP STAT measurement started. 12:08 PM HR=60 bpm, LDUQ=049/82 mmhg, SpO2=94 % 12:11 PM Time: 12:11 Patient comfortable and pain free: Yes cedwards 12:11 PM Time: 12:11LOC: 5 = Fully awake and oriented or at pre-proc level cedwards 12:11 PM Time: 12:11 Versed 2 mg Intravenous Given by Kathya Anand RN cedwards 12:12 PM Time: 12:12 Fentanyl 50 mcg Intravenous Given by Kathya Anand RN cedwards 12:14 PM Clinical Presentation: Unstable angina cedwards 12:14 PM Time out performed according to hospital policy cedwards 12:15 PM Time: 12:14 19 ml Lidocaine 2% to right groin Subcutaneous Given by Frank Clinton MD, [facility] cedwards 12:15 PM Kathya Anand RN Position: Medical Supervisor Time in: 12:15 cedwards 12:15 PM Kayden Lemos RN Position: Monitor Time in: 12:15 cedwards 12:15 PM Karishma Olivier RT (R) Position: Scrub Time in: 12:15 cedwards 12:15 PM Recorded ECG: HR=61 Condition=Condition 1 12:16 PM Recorded ECG: HR=58 Condition=Condition 1 12:16 PM Time: 12:16 Versed 1 mg Intravenous Given by Kathya Anand RN cedwards 12:17 PM Micro-Introducer Kit utilized for sheath placement cedwards 12:17 PM Access obtained by percutaneous puncture. 5Fr 10cm [place] sheath placed in right Femoral artery. [id number] cedwards 12:18 PM Patient charges- Angio tray pack, Navilyst 3mm J, Pulse Oximetry and ACIST tubing and transducer cedwards 12:18 PM IV Supplies used: J loop Angio Cath. cedwards 12:18 PM 5Fr FL 4 catheter inserted over the wire [facility] cedwards 12:18 PM LCA angiography performed in multiple views. cedwards 12:18 PM Recorded Pressure: Ao, HR=60, Condition=Condition 1 (Aorta) Ao 89/66/79 12:21 PM Catheter removed cedwards 12:21 PM 5Fr FR 4 catheter inserted over the wire [facility] cedwards 12:23 PM RCA angiography performed in multiple views. cedwards 12:25 PM Time: 12:24 Nitroglycerin 200 mcg Given by Frank Clinton MD cedwards 12:25 PM Catheter removed cedwards 12: PM 5Fr Pigtail catheter inserted over the wire DN cedwards 12: PM Time: 12:11LOC: 4 = Oriented but drowsy cedwards 12: PM Time: 12:11 Patient comfortable and pain free: Yes cedwards 12:26 PM Recorded Pressure: LV, HR=65, Condition=Condition 1 (Left Ventricle) LV 64/5/8 12:27 PM Recorded Pressure: LV, Ao, HR=66, Condition=Condition 1 (Left Ventricle) LV 388/137/388, (Aorta) Ao 61/27/42 12:27 PM Recorded Pressure: LV, Ao, HR=74, Condition=Condition 1 (Left Ventricle) LV 86/20/10, (Aorta) Ao 75/52/64 12:28 PM Bolus angiogram of left Ventricle complete: 10 ml/sec for a total of 20 mls cedwards 12:28 PM Bolus angiogram of right Femoral complete: 4 ml/sec for a total of 7 mls cedwards 12:30 PM Procedure completed at 12:30 cedwards 12:31 PM Did you address HOLLIE flow and Dominance? Yes cedwards 12:32 PM Sign out completed: Radiation Dose 317 mGy Fluoro Time: 2.1 Isovue 370 - 200ml contrast 70.4 ml given by Frank Clinton MD, [facility]. Complications: NoneCardiac Rehab Consult needed: YesConfirmed administered medications: Yes cedwards 12:32 PM Isovue 370 - 200ml,1 Bottle(s) used. cedwards 12:32 PM Arterial sheath pulled, Mynx closure device used and was Successful [id number] S/N. cedwards 12:32 PM Estimated Blood Loss: minimal cedwards 12:32 PM Post ECG Sinus Bradycardia cedwards 12:33 PM Post Blood Pressure 133/82 cedwards 12:33 PM Information taught Cardiac Cath and Mynx cedwards 12:33 PM Education needs Plan of Care, Procedure, and Responsibilities of Patient in Care cedwards 12:33 PM Learning barriers :None cedwards 12:33 PM Education Methods Verbal cedwards 12:33 PM Education evaluation Able to repeat information cedwards 12:34 PM Site status No bleeding/hematoma - Rt Groin as reported by Karishma Olivier RT (R) at 12:34 cedwards 12:34 PM Report given to Marguerite HE Pt taken to Holding room Room #4. 12:34 cedwards 12:34 PM Plavix, Effient or Brilinta given No cedwards 12:34 PM Patient out of room: 12:34 cedwards 12:34 PM Family placed in consult room. cedwards 12:34 PM Complications: None cedwards 12:34 PM Fluoro Time: 2.1 cedwards 12:35 PM Isovue 370 - 200ml contrast 70.[address] Clinton. cedwards 12:35 PM Radiation Dose 317.46 mGy cedwards 12:36 PM Lesion found in Ostial/Proximal RCA. Pre Stenosis: 70 Pre HOLLIE Flow: cedwards 12:37 PM Lesion found in Proximal LAD. Pre Stenosis: 99 Pre HOLLIE Flow: 2: Partial Flow/Perfusion (> 1 but < 3) cedwards 12:37 PM Lesion found in Mid Circumflex. Pre Stenosis: 70 Pre HOLLIE Flow: cedwards 12:38 PM Lesion found in 1st Marginal. Pre Stenosis: 99 Pre HOLLIE Flow: 2: Partial Flow/Perfusion (> 1 but < 3) cedwards 12:41 PM Coronary Dominance: right cedwards 12:46 PM ASA Class CLASS II- Mild systemic disease (i.e. well-controlled diabetes, hypertension, asthma, cigarette smoking) cedwards 01:08 PM Report given to Huma HE Pt taken to 3B Room #46. 13:08 [email or web address] 01:30 PM Patient out of room: 13:30 [email or web address] Complications Complication None None Hemodynamics Pressures Site Systolic/A Wave Diastolic/V Wave Mean AO 89 66 79 LV 64 5 8 LV 388 137 388 AO 61 27 42 LV 86 20 10 AO 75 52 64 Post Procedure Information Blood Pressure: 133/82 mmHg Rhythm: Sinus Bradycardia Post procedural instructions were given Surgery consult for CABG Closure Device Time Device Success/Fail 02/11/2018 12:40:00 PM MynxGrip Successful Site Checks Time Location Status Staff Sheath In? Note 12:34 PM Rt Groin No bleeding/hematoma Karishma Olivier RT (R) 01:02 PM Rt Groin No bleeding/ No Hematoma Cherie Henao RN 01:15 PM Rt Groin No bleeding/ No Hematoma Yoselin Romero RN Pulses Time Site Pre-Procedure Post-Procedure Note 02/11/2018 9:48:00 AM Bilateral DP 2+ 02/11/2018 9:51:00 AM Bilateral PT 1+ 02/11/2018 5:51:00 AM Bilat Radial 2+ 02/11/2018 1:15:00 PM Bilateral DP & PT 1+ 1+ Updated by Cherie Henao RN on 02/11/2018 1:30:47 PM electronically signed on 02/11/2018 1:31:31 PM with status of Final
[2018-02-11] MEDS: 0.9 % Sodium Chloride 1,000 ML IVC SCH (14:23)
[2018-02-11] MEDS: Heparin 25,000 UNIT/500 ML D5W 25,000 UNIT/500 ML BAG IVC SCH (14:25)
[2018-02-11 14:31] LABS: Hematocrit 46.3 % (37.5-50.1); Hemoglobin 15.6 g/dL (12.9-16.9); Mean Corpuscular HGB Conc 33.7 g/dL (31.6-35.5); Mean Corpuscular Hemoglobin 29.9 pg (28.0-33.3); Mean Corpuscular Volume 88.9 fL (83.0-100.0); Mean Platelet Volume 10.4 fL (9.4-12.4); Platelet Count 170 K/mcL (140-400); Red Blood Count 5.21 M/mcL (4.19-5.50); Red Cell Distribution Width 12.9 % (11.5-14.5)
[2018-02-11] MEDS: *HR* HYDROcodone/Acet 5/325 mg TABLET PO PRN ×2 (14:32→23:47)
[2018-02-11 14:33] LABS: Prothrombin Time 11.2 Seconds (9.4-12.1)
[2018-02-11] MEDS: (Dulaglutide [Trulicity] 0.5 ML) SQ SCH (15:31)
[2018-02-11] MEDS ORDERED: Insulin LISPRO 300 UNITS/3 ML VIAL SQ SCH ×2 (16:30→21:00)
--- NOTE | 2018-02-11 17:00 | Cardiothoracic Consult Note ---
Date of Encounter: 02/11/18 Time of Encounter: 16:56 Assessment and Plan (1) Chest pain Current Visit: No Status: Resolved The assessment and plan as outlined above was discussed with the patient and/or family members who expressed understanding and agreement. All questions were answered. The patient is a candidate for coronary artery bypass grafting. This would include grafts to his right coronary artery and circumflex coronary arteries. Hopefully, we could place a left internal mammary artery graft into the LAD. He did receive a load of Plavix last week and took his last dose of Plavix on Saturday. I offered the patient surgery on Saturday, he prefers to wait until early next week. He can be maintained on a heparin drip until that time. The procedure, its risks, benefits and alternatives were explained and he does wish to proceed. He has no questions. Qualifiers: Chest pain type: unspecified Qualified Code(s): R07.9 - Chest pain, unspecified - History of Present Illness History of present illness: The patient is a 58-year-old gentleman who had an echocardiogram in January which revealed no valvular disease. He presented with chest pain with exertion. He states that he has had a previous myocardial infarction and has had numerous stents. He has been on Plavix and did receive a dose Saturday. Cardiac catheterization done today revealed severe triple vessel disease. He has a 70% ostial right coronary artery lesion. A 90% circumflex lesion. He has a 99 200 % LAD lesion. The LAD fills poorly, but hopefully would be graftable. Past medical history notable for diabetes on oral agents. He does have hypertension and hypercholesterolemia. He also has history of asthma, COPD and anxiety disorder. Social history. He lives outside of [place]. He is disabled because of some foot surgery and his anxiety disorder. Rarely drinks alcohol. Continues to smoke AGAINST MEDICAL ADVICE. Family history is positive for coronary artery disease. Review of systems is negative for stroke or TIA. Negative for saphenous vein varicosities or strippings. Past Med Surg Social Fam HX - Past Medical History Medical history: asthma, CHF, COPD, diabetes, hyperlipidemia, myocardial infarction, other Additional medical history: [place], Psychiatric history: no psych history - Past Surgical History Surgical History: other Additional surgical history: Right foot surgery w/ pinched nerve, torn ligament left shoulder, 3 stents - Social History Smoking Status: Current some day smoker Smokeless Tobacco Status: No Alcohol use: none Drug use: none - Family History Son Adopted: No Family Member Ethnicity: Non- Living Status: Still Living Hx Family Cardiac Disorders: No Hx Family Respiratory Disorders: No Hx Family Cancer: No Hx Family GI Disorders: No Hx Family Endocrine Disorder: No Hx Family Neuromuscular Disorders: No Hx Family Neurologic Disorders: No Hx Family HEENT Disorders: No Hx Family Autoimmune Disorders: No Mother Living Status: Hx Family Cardiac Disorders: Yes Hx Family Endocrine Disorder: Yes (DM) Medications and Allergies ALPRAZolam [Xanax 0.5 MG Tablet] 0.5 mg PO BID PRN 07/29/15 [History] Budesonide/Formoterol 160/4.5 [Symbicort 160/4.5] 2 puff IH BIDR PRN 07/29/15 [ History] Fluticasone Propionate [Flovent Diskus] 1 puff IH BID PRN 07/29/15 [History] Aspirin Enteric Coated [Aspirin EC] 81 mg PO DAILY 07/31/15 [History] HYDROcodone/Acet 5/325 mg [[place] 5-325 mg] 1 tab PO Q6H PRN 12/15/15 [History] Dulaglutide [Trulicity] 0.5 ml SQ QWEEK 01/23/18 [History] GlipiZIDE [Glipizide ER] 10 mg PO BID 01/23/18 [History] Metformin HCl [Metformin HCl ER] 500 mg PO DAILY 01/23/18 [History] Nitroglycerin [Nitrostat] 0.4 mg PO Q5MIN PRN 01/23/18 [History] Albuterol Sulfate [Albuterol Inhaler] 2 puff IH Q4HR PRN inhaler 01/26/18 [Rx] Clopidogrel [Plavix] 75 mg PO DAILY #30 tablet 01/26/18 [Rx] Rosuvastatin [Crestor] 20 mg PO HS #30 tablet 01/26/18 [Rx] 3 Allergy/AdvReac Type Severity Reaction Status Date / Time atorvastatin [From Lipitor] AdvReac Nausea Verified 01/23/18 09:12 metoprolol AdvReac Nausea Verified 01/23/18 09:12 All Systems Review: The remainder of the systems were reviewed and are negative Physical Examination Vital Signs, Last 4 Hours Temp Pulse Resp BP Pulse Ox 02/11/18 15:08 98.3 F 67 16 115/75 94 02/11/18 14:39 98.1 F 66 16 107/68 95 Pupils are equal, round and reactive to light and accommodation. No oral lesions. Neck is supple. Trachea in the midline. No thyromegaly or carotid bruits. Lungs are clear to percussion and auscultation. Heart is in a normal sinus rhythm. No murmurs, gallops or rubs. Abdomen is benign. No tenderness, rebound or guarding. Extremities without edema. No saphenous vein varicosities or strippings. He does have right foot deformity from her previous surgery.. Cranial nerves, motor and sensory intact. Results 02/11/18 14:02 Lab Results, Last 24 hours 02/11/18 02/11/18 02/11/18 10:07 14:02 14:02 WBC 10.9 Hgb 15.6 Hct 46.3 Plt Count 170 INR 1.0 1.0 APTT 30.0 Consult Discharge Plan - Plan Referrals: Villa Chan DO [Primary Care Provider] -
[2018-02-11] MEDS: *HR* GlipiZIDE XL (24 HR) 10 MG TABLET PO SCH (17:58)
[2018-02-11] MEDS: Beclomethasone 80mcg MDI IH SCH (19:23)
[2018-02-11] MEDS: Insulin LISPRO 300 UNITS/3 ML VIAL SQ SCH ×2 (21:37→23:52)
[2018-02-11] MEDS: ALPRAZolam 0.5 MG TABLET PO PRN (21:37)
[2018-02-12 04:07] LABS: Basophils % 0.4 %; Eosinophils # 0.3 K/mcL (0.0-0.6); Hematocrit 44.1 % (37.5-50.1); Hemoglobin 15.2 g/dL (12.9-16.9); Immature Granulocytes % 0.2 % (0-4); Lymphocytes % 42.4 %; Mean Corpuscular HGB Conc 34.5 g/dL (31.6-35.5); Mean Corpuscular Volume 87.2 fL (83.0-100.0); Mean Platelet Volume 10.9 fL (9.4-12.4); Monocytes # 0.8 K/mcL (0.0-1.3); Monocytes % 8.7 %; Neutrophils # 4.3 K/mcL (1.6-8.9); Platelet Count 147 K/mcL (140-400); Red Blood Count 5.06 M/mcL (4.19-5.50); Red Cell Distribution Width 12.7 % (11.5-14.5); Segmented Neutrophils % 45.3 %
[2018-02-12 04:20] LABS: BUN/Creatinine Ratio 20 (6-26); Blood Urea Nitrogen 12 mg/dL (6-20); Calcium 8.6 mg/dL (8.6-10.3); Carbon Dioxide 25 mEq/L (23-29); Chloride 107 mEq/L (98-107); Glucose 120 mg/dL (70-105); Osmolality,Calculated 287 (280-300); Potassium 3.5 mEq/L (3.5-5.1); Sodium 138 mEq/L (136-145); eGFR For African Americans > 60 (> 60); eGFR For Non-African Americans > 60 (> 60)
[2018-02-12] MEDS: Insulin LISPRO 300 UNITS/3 ML VIAL SQ SCH ×3 (06:12→18:51)
[2018-02-12] MEDS: *HR* HYDROcodone/Acet 5/325 mg TABLET PO PRN ×3 (06:15→18:51)
[2018-02-12] MEDS: 0.9 % Sodium Chloride 1,000 ML IVC SCH (06:15)
[2018-02-12] MEDS: Beclomethasone 80mcg MDI IH SCH ×2 (07:56→20:04)
--- NOTE | 2018-02-12 08:34 | Cardiothoracic Progress Note ---
Date of Encounter: 02/12/18 Time of Encounter: 08:32 - Assessment and plan (1) Chest pain Current Visit: No Status: Resolved The patient has been loaded with Plavix and was on chronic Plavix therapy. We will schedule open heart surgery for early next week. At this point, he has no questions. Qualifiers: Chest pain type: unspecified Qualified Code(s): R07.9 - Chest pain, unspecified - Subjective Interval history: The patient has had no chest pain and no angina. Vital Signs, Last 4 Hours Temp Pulse Resp BP Pulse Ox 02/12/18 07:56 16 94 02/12/18 07:26 98.3 F 63 16 121/77 93 Clinical Data, last 8 Hours Output, Urine Amount 175 Output, Urine Amount 200 Weight 02/10/18 02/11/18 02/12/18 23:59 23:59 23:59 Weight 97.522 kg 96.7 kg Lungs are clear to percussion and auscultation. Heart is in a regular rate and rhythm. - Labs 02/12/18 03:18 02/12/18 03:18 Lab Results, Last 24 hours 02/11/18 02/11/18 02/11/18 10:07 14:02 14:02 WBC 10.9 Hgb 15.6 Hct 46.3 Plt Count 170 INR 1.0 1.0 APTT 30.0 Sodium Potassium Chloride Carbon Dioxide BUN Creatinine Glucose Calcium 02/11/18 02/12/18 02/12/18 20:40 03:18 03:18 WBC 9.5 Hgb 15.2 Hct 44.1 Plt Count 147 INR APTT 69.0 H D Sodium 138 Potassium 3.5 Chloride 107 Carbon Dioxide 25 BUN 12 Creatinine 0.60 L Glucose 120 H Calcium 8.6 02/12/18 03:18 WBC Hgb Hct Plt Count INR APTT 60.8 H Sodium Potassium Chloride Carbon Dioxide BUN Creatinine Glucose Calcium Consult Discharge Plan - Plan Referrals: Villa Chan DO [Primary Care Provider] -
[2018-02-12] MEDS: *HR* GlipiZIDE XL (24 HR) 10 MG TABLET PO SCH ×2 (08:50→17:22)
[2018-02-12] MEDS: Aspirin Enteric Coated 81 MG Tablet PO SCH (08:51)
[2018-02-12] MEDS: ALPRAZolam 0.5 MG TABLET PO PRN ×2 (08:55→20:32)
--- NOTE | 2018-02-12 10:24 | Cardiology Progress Note ---
Date of Encounter: 02/12/18 Time of Encounter: 10:20 Assessment and Plan (1) Chest pain Current Visit: Yes Status: Acute Recent abnormal stress test; in addition with ongoing chest pain symptoms, [facility] recommended. Admitted s/p C due to severe 3-vessel CAD, recommended for CABG. Recent plavix load and has been on 75 mg daily Plavix, now discontinued. 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 Recommended for urgent CABG. Vitals, labs, telemetry stable. No complaints upon exam, chest pain free. No issues with cath site. Plan for CABG early next week, possibly Saturday. CT Surgery following. Continue heparin gtt, asa, and statin. Has not been on BB due to bradycardia. Cardiac rehab. VTE prophylaxis: Heparin gtt. Qualifiers: Chest pain type: chest pain due to myocardial ischemia Ischemic chest pain type: unstable angina pectoris Qualified Code(s): I20.0 - Unstable angina (2) Hypertension, essential, benign Current Visit: No Status: Chronic Controlled, continue to monitor as inpt. (3) CAD (coronary artery disease) Current Visit: Yes Status: Chronic Plan as above. Hx of CAD s/p prior PCI. Continue asa, statin. Has not been on BB d/t bradycardia. Qualifiers: Coronary Disease-Associated Artery/Lesion type: [place] artery [place] vs. transplanted heart: [place] heart Associated angina: with unstable angina Qualified Code(s): I25.110 - Atherosclerotic heart disease of [place] coronary artery with unstable angina pectoris (4) Tobacco abuse Current Visit: No Status: Chronic Smoking cessation counseling. Discussion w patient/family: The assessment and plan as outlined above was discussed with the patient and/or family members who expressed understanding and agreement. All questions were answered. Thank you for involving us in the care of your patient. Please call with any questions. The patient will be discussed and reviewed with Dr. Davis; changes to be made accordingly. Subjective Principal diagnosis: CAD, multi-vessel Interval history: Seen and examined. No complaints upon exam. Reports increased stress, controlled with prn anti-anxiety medications. No chest pain reported. No issues with right femoral cath site. Objective Vital Signs, Last 4 Hours Temp Pulse Resp BP Pulse Ox 02/12/18 07:56 16 94 02/12/18 07:26 98.3 F 63 16 121/77 93 General: Conversant, No Apparent Distress HEENT: Atraumatic, Normocephaly, Mucus Membranes Moist Neck: No JVD Cardiac: Reg Rate and Rhythm, Normal S1 and S2 Lungs: Normal Breath Sounds Neuro: Alert and responsive Abdomen: Soft Skin: No rashes noted on visualized skin Musculoskeletal: No Chest Wall Tenderness Extremities: No Edema, Normal Pulses Results 02/12/18 03:18 02/12/18 03:18 Lab Results 02/11/18 02/11/18 02/11/18 14:02 14:02 20:40 WBC 10.9 Hgb 15.6 Hct 46.3 Plt Count 170 INR 1.0 APTT 30.0 69.0 H D Sodium Potassium Chloride Carbon Dioxide BUN Creatinine Glucose Calcium 02/12/18 02/12/18 02/12/18 03:18 03:18 03:18 WBC 9.5 Hgb 15.2 Hct 44.1 Plt Count 147 INR APTT 60.8 H Sodium 138 Potassium 3.5 Chloride 107 Carbon Dioxide 25 BUN 12 Creatinine 0.60 L Glucose 120 H Calcium 8.6 Active Medications Acetaminophen (Tylenol) 650 mg PO Q6HR PRN PRN Reason: Mild Pain Stop: 08/13/18 12:33 Hydrocodone Bitart/Acetaminophen ([place] 5-325 Mg) 1 tab PO Q6H PRN PRN Reason: Pain Stop: 08/13/18 12:35 Last Admin: 02/12/18 06:15 Dose: 1 tab Albuterol Sulfate (Albuterol Inhaler) 2 puff IH Q4HR PRN PRN Reason: Shortness Of Breath Stop: 08/13/18 12:35 Alprazolam (Xanax) 0.5 mg PO BID PRN; Protocol PRN Reason: Anxiety Stop: 08/13/18 12:35 Last Admin: 02/12/18 08:55 Dose: 0.5 mg Aspirin (Aspirin Ec) 81 mg PO DAILY UMM Stop: 08/14/18 09:01 Last Admin: 02/12/18 08:51 Dose: Not Given Beclomethasone Dipropionate (Qvar 80 Mcg) 1 puff IH BIDR UMM Stop: 08/13/18 22:01 Last Admin: 02/12/18 07:56 Dose: 1 puff Dextrose/Water (Dextrose 50% (Syg)) 25 ml IVP AD PRN PRN Reason: Hypoglycemia Stop: 08/13/18 12:37 Diphenhydramine HCl (Benadryl) 25 mg PO HS PRN PRN Reason: Insomnia Stop: 08/13/18 12:33 Glipizide (Glucotrol Xl) 10 mg PO BIDWM UMM Stop: 08/13/18 17:01 Last Admin: 02/12/18 08:50 Dose: Not Given Glucagon (Glucagen) 1 mg IM ONCE PRN PRN Reason: Hypoglycemia Stop: 08/13/18 12:37 Glucose (Gluctose) 15 gm PO ONCE PRN PRN Reason: Hypoglycemia Stop: 08/13/18 12:37 Glucose (Gluctose) 30 gm PO ONCE PRN PRN Reason: Hypoglycemia Stop: 08/13/18 12:37 Heparin Sodium (Porcine) (Heparin) 4,000 unit IVP Q6HR PRN PRN Reason: SEE COMMENTS Stop: 08/13/18 12:36 Heparin Sodium (Porcine) (Heparin) 2,000 unit IVP Q6H PRN PRN Reason: SEE COMMENTS Stop: 08/13/18 12:36 Sodium Chloride (0.9 % Sodium Chloride) 1,000 mls @ 50 mls/hr IVC .Q20H UMM Stop: 08/13/18 10:01 Last Admin: 02/12/18 06:15 Dose: 50 mls/hr Heparin Sodium/Dextrose (Heparin 25,000 Unit/500 Ml D5w) 25,000 unit in 500 mls @ 20.357 mls/hr IVC .Q24H UMM; 11 UNIT/KG/HR PRN Reason: Protocol Stop: 08/13/18 12:46 Last Titration: 02/12/18 04:29 Dose: 20.4 unit/kg/hr, 37.753 mls/hr Dextrose (Dextrose 5%) 1,000 mls @ 100 mls/hr IVC .Q10H PRN PRN Reason: HYPOGLYCEMIA Stop: 08/13/18 12:37 Insulin Human Lispro (Humalog) 0 units SQ Q6HR UMM PRN Reason: Protocol Stop: 08/13/18 18:01 Last Admin: 02/12/18 06:12 Dose: Not Given Ondansetron HCl (Zofran) 4 mg IVP Q6HR PRN; Protocol PRN Reason: Nausea And Vomiting Stop: 08/13/18 12:33 Pharmacy Profile Note (Patient Taking Own Medication) 0.5 each SQ QWEEK [facility] Stop: 08/13/18 12:46 Last Admin: 02/11/18 15:31 Dose: Not Given Rosuvastatin Calcium (Crestor) 20 mg PO HS [facility] Stop: 08/13/18 21:01 Last Admin: 02/11/18 21:37 Dose: 20 mg - Imaging and Cardiology Stress Test: report reviewed Echo: report reviewed Cardiac cath: report reviewed Other Results: 12 hour tele: avg HR=60 SR. Min=43 SB (nocturnal) Consult Discharge Plan - Plan Referrals: Villa Chan DO [Primary Care Provider] -
[2018-02-12] MEDS: Heparin 25,000 UNIT/500 ML D5W 25,000 UNIT/500 ML BAG IVC SCH (15:36)
[2018-02-13] MEDS: *HR* HYDROcodone/Acet 5/325 mg TABLET PO PRN ×4 (00:31→22:29)
[2018-02-13] MEDS: 0.9 % Sodium Chloride 1,000 ML IVC SCH (00:32)
[2018-02-13] MEDS: Insulin LISPRO 300 UNITS/3 ML VIAL SQ SCH ×4 (00:32→16:31)
[2018-02-13] MEDS: Beclomethasone 80mcg MDI IH SCH ×2 (07:25→19:51)
--- NOTE | 2018-02-13 08:30 | Cardiothoracic Progress Note ---
Date of Encounter: 02/13/18 Time of Encounter: 08:28 - Assessment and plan (1) Chest pain Current Visit: No Status: Resolved Open heart surgery is scheduled for Saturday. Operative consent was obtained. Risks of surgery include , infection, stroke, myocardial infarction, bleeding, clots around the heart, acute renal or respiratory failure, acute or chronic graft closure, phrenic nerve injury and sternal dehiscence. The procedure, its risks, benefits and alternatives were explained and he does wish to proceed. He has no questions. We will discontinue the heparin drip at 5 AM on Saturday. Qualifiers: Chest pain type: unspecified Qualified Code(s): R07.9 - Chest pain, unspecified - Subjective Interval history: The patient has no complaints. He has had no chest pain on a heparin drip. Vital Signs, Last 4 Hours Temp Pulse Resp BP Pulse Ox 02/13/18 07:26 18 98 02/13/18 06:52 97.4 F L 50 17 135/92 97 02/13/18 04:50 97.4 F L 55 16 132/91 96 Clinical Data, last 8 Hours Output, Urine Amount 150 Weight 02/11/18 02/12/18 02/13/18 23:59 23:59 23:59 Weight 97.522 kg 96.7 kg Lungs are clear to percussion and auscultation. Heart is in a normal sinus rhythm. - Labs 02/12/18 03:18 02/12/18 03:18 Lab Results, Last 24 hours 02/12/18 02/13/18 20:59 04:47 APTT 50.7 H 80.0 H D Consult Discharge Plan - Plan Referrals: Villa Chan DO [Primary Care Provider] - 02/18/18 12:00 pm
--- NOTE | 2018-02-13 08:56 | Cardiology Progress Note ---
Date of Encounter: 02/13/18 Time of Encounter: 08:30 Assessment and Plan (1) Chest pain Current Visit: Yes Status: Acute Recent abnormal stress test; in addition with ongoing chest pain symptoms, [facility] recommended. Admitted s/p [facility] due to severe 3-vessel CAD, recommended for CABG. Recent plavix load and has been on 75 mg daily Plavix, now discontinued. [facility] 02/11/18: severe 3-vessel CAD with high syntax score; ostial RCA, [employer], and bifurcation LCx, OM disease, EF 55%. Recommended for urgent CABG. Patient has been recommended to remain as inpatient d/t complexity and severity of lesions, requires heparin gtt. Vitals, labs, telemetry stable. No issues with cath site. Reports episode of chest pain overnight, discussed starting long-acting nitrates, however patient declines and states imdur worsens pain. Consider NTG gtt if needed. Plan for CABG early next week, possibly Saturday. CT Surgery following. Continue heparin gtt, asa, and statin. Has not been on BB due to bradycardia. Cardiac rehab. VTE prophylaxis: Heparin gtt. Qualifiers: Chest pain type: chest pain due to myocardial ischemia Ischemic chest pain type: unstable angina pectoris Qualified Code(s): I20.0 - Unstable angina (2) Hypertension, essential, benign Current Visit: No Status: Chronic Controlled, continue to monitor as inpt. (3) CAD (coronary artery disease) Current Visit: Yes Status: Chronic Plan as above. Hx of CAD s/p prior PCI. Continue asa, statin. Has not been on BB d/t bradycardia. Qualifiers: Coronary Disease-Associated Artery/Lesion type: [place] artery [place] vs. transplanted heart: [place] heart Associated angina: with unstable angina Qualified Code(s): I25.110 - Atherosclerotic heart disease of [place] coronary artery with unstable angina pectoris (4) Tobacco abuse Current Visit: No Status: Chronic Smoking cessation counseling. Discussion w patient/family: The assessment and plan as outlined above was discussed with the patient and/or family members who expressed understanding and agreement. All questions were answered. Thank you for involving us in the care of your patient. Please call with any questions. The patient will be discussed and reviewed with Dr. Clinton; changes to be made accordingly. Subjective Principal diagnosis: CAD, multi-vessel Interval history: Seen and examined. Reports episode of chest discomfort overnight, resolved without intervention. No other complaints upon exam today. No issues with right groin cath site. Objective Vital Signs, Last 4 Hours Temp Pulse Resp BP Pulse Ox 02/13/18 07:26 18 98 02/13/18 06:52 97.4 F L 50 17 135/92 97 General: Conversant, No Apparent Distress HEENT: Atraumatic, Normocephaly, Mucus Membranes Moist Cardiac: Reg Rate and Rhythm, Normal S1 and S2 Lungs: Normal Breath Sounds Neuro: Alert and responsive Abdomen: Soft Skin: No rashes noted on visualized skin Musculoskeletal: No Chest Wall Tenderness Extremities: No Edema, Normal Pulses Other: Right groin: bandaid at site, no hematoma, ecchymosis or bleeding noted. +2 DP/ PT pulses. Results 02/12/18 03:18 02/12/18 03:18 Lab Results 02/12/18 02/13/18 20:59 04:47 APTT 50.7 H 80.0 H D Active Medications Acetaminophen (Tylenol) 650 mg PO Q6HR PRN PRN Reason: Mild Pain Stop: 08/13/18 12:33 Hydrocodone Bitart/Acetaminophen ([place] 5-325 Mg) 1 tab PO Q6H PRN PRN Reason: Pain Stop: 08/13/18 12:35 Last Admin: 02/13/18 06:17 Dose: 1 tab Albuterol Sulfate (Albuterol Inhaler) 2 puff IH Q4HR PRN PRN Reason: Shortness Of Breath Stop: 08/13/18 12:35 Last Admin: 02/13/18 07:25 Dose: 2 puff Alprazolam (Xanax) 0.5 mg PO BID PRN; Protocol PRN Reason: Anxiety Stop: 08/13/18 12:35 Last Admin: 02/12/18 20:32 Dose: 0.5 mg Aspirin (Aspirin Ec) 81 mg PO DAILY UMM Stop: 08/14/18 09:01 Last Admin: 02/12/18 08:51 Dose: Not Given Beclomethasone Dipropionate (Qvar 80 Mcg) 1 puff IH BIDR UMM Stop: 08/13/18 22:01 Last Admin: 02/13/18 07:25 Dose: 1 puff Dextrose/Water (Dextrose 50% (Syg)) 25 ml IVP AD PRN PRN Reason: Hypoglycemia Stop: 08/13/18 12:37 Diphenhydramine HCl (Benadryl) 25 mg PO HS PRN PRN Reason: Insomnia Stop: 08/13/18 12:33 Glipizide (Glucotrol Xl) 10 mg PO BIDWM UMM Stop: 08/13/18 17:01 Last Admin: 02/12/18 17:22 Dose: Not Given Glucagon (Glucagen) 1 mg IM ONCE PRN PRN Reason: Hypoglycemia Stop: 08/13/18 12:37 Glucose (Gluctose) 15 gm PO ONCE PRN PRN Reason: Hypoglycemia Stop: 08/13/18 12:37 Glucose (Gluctose) 30 gm PO ONCE PRN PRN Reason: Hypoglycemia Stop: 08/13/18 12:37 Heparin Sodium (Porcine) (Heparin) 4,000 unit IVP Q6HR PRN PRN Reason: SEE COMMENTS Stop: 08/13/18 12:36 Heparin Sodium (Porcine) (Heparin) 2,000 unit IVP Q6H PRN PRN Reason: SEE COMMENTS Stop: 08/13/18 12:36 Last Admin: 02/12/18 21:59 Dose: 2,000 unit Sodium Chloride (0.9 % Sodium Chloride) 1,000 mls @ 50 mls/hr IVC .Q20H UMM Stop: 08/13/18 10:01 Last Admin: 02/13/18 00:32 Dose: 50 mls/hr Heparin Sodium/Dextrose (Heparin 25,000 Unit/500 Ml D5w) 25,000 unit in 500 mls @ 20.357 mls/hr IVC .Q24H UMM; 11 UNIT/KG/HR PRN Reason: Protocol Stop: 08/13/18 12:46 Last Titration: 02/13/18 06:13 Dose: 13.18 unit/kg/hr, 24.4 mls/hr Dextrose (Dextrose 5%) 1,000 mls @ 100 mls/hr IVC .Q10H PRN PRN Reason: HYPOGLYCEMIA Stop: 08/13/18 12:37 Insulin Human Lispro (Humalog) 0 units SQ Q6HR UMM PRN Reason: Protocol Stop: 08/13/18 18:01 Last Admin: 02/13/18 06:18 Dose: Not Given Ondansetron HCl (Zofran) 4 mg IVP Q6HR PRN; Protocol PRN Reason: Nausea And Vomiting Stop: 08/13/18 12:33 Pharmacy Profile Note (Patient Taking Own Medication) 0.5 each SQ QWEEK UMM Stop: 08/13/18 12:46 Last Admin: 02/11/18 15:31 Dose: Not Given Rosuvastatin Calcium (Crestor) 20 mg PO HS UMM Stop: 08/13/18 21:01 Last Admin: 02/12/18 20:37 Dose: Not Given - Imaging and Cardiology Stress Test: report reviewed Echo: report reviewed Cardiac cath: report reviewed Other Results: 12 hour tele: avg HR=57 SB. Min=45 SB (nocturnal). No pause. - EKG Interpretation EKG results cardiology: personally reviewed Consult Discharge Plan - Plan Referrals: Villa Chan DO [Primary Care Provider] - 02/18/18 12:00 pm
[2018-02-13] MEDS: Aspirin Enteric Coated 81 MG Tablet PO SCH (08:57)
[2018-02-13] MEDS: *HR* GlipiZIDE XL (24 HR) 10 MG TABLET PO SCH ×2 (09:15→16:20)
[2018-02-13] MEDS: ALPRAZolam 0.5 MG TABLET PO PRN ×2 (09:45→21:12)
[2018-02-13] MEDS: Heparin 25,000 UNIT/500 ML D5W 25,000 UNIT/500 ML BAG IVC SCH (14:13)
[2018-02-14] MEDS: Insulin LISPRO 300 UNITS/3 ML VIAL SQ SCH ×4 (00:16→18:05)
[2018-02-14] MEDS: *HR* HYDROcodone/Acet 5/325 mg TABLET PO PRN ×3 (04:22→20:58)
[2018-02-14 07:03] LABS: BUN/Creatinine Ratio 18 (6-26); Blood Urea Nitrogen 11 mg/dL (6-20); Calcium 8.9 mg/dL (8.6-10.3); Carbon Dioxide 26 mEq/L (23-29); Chloride 107 mEq/L (98-107); Glucose 132 mg/dL (70-105); Osmolality,Calculated 285 (280-300); Potassium 3.8 mEq/L (3.5-5.1); Sodium 137 mEq/L (136-145); eGFR For African Americans > 60 (> 60); eGFR For Non-African Americans > 60 (> 60)
--- NOTE | 2018-02-14 07:50 | Cardiology Progress Note ---
Date of Encounter: 02/14/18 Time of Encounter: 07:50 Assessment and Plan (1) CAD (coronary artery disease) Current Visit: Yes Status: Chronic Per Cardiology: Hx of CAD s/p prior PCI. Awaiting CABG Saturday. On IV Hep gtt, asa, statin. Has not been on BB d/t bradycardia. Discussed with CT surgery. Qualifiers: Coronary Disease-Associated Artery/Lesion type: [place] artery [place] vs. transplanted heart: [place] heart Associated angina: with unstable angina Qualified Code(s): I25.110 - Atherosclerotic heart disease of [place] coronary artery with unstable angina pectoris Discussion w patient/family: The assessment and plan as outlined above was discussed with the patient and/or family members who expressed understanding and agreement. All questions were answered. Thank you for involving us in the care of your patient. Please call with any questions. Subjective Principal diagnosis: CAD, multi-vessel Interval history: Denies any concerns over night. Chest pain-free. Objective Vital Signs, Last 4 Hours Temp Pulse Resp BP Pulse Ox 02/14/18 07:03 97.9 F 81 16 112/75 92 General: Conversant, No Apparent Distress HEENT: Atraumatic, Normocephaly, Mucus Membranes Moist Neck: No JVD, Normal carotid pulses Cardiac: Reg Rate and Rhythm, Normal S1 and S2, No Murmur Lungs: Normal Breath Sounds, No Wheeze, Rales, Rhonchi Neuro: Alert and responsive, No focal deficits noted Abdomen: Soft, Non-Tender Skin: No rashes noted on visualized skin Musculoskeletal: No Chest Wall Tenderness Extremities: No Clubbing, No Cyanosis, No Edema, Normal Pulses Results 02/12/18 03:18 02/14/18 06:11 Lab Results Laboratory Tests 02/14/18 06:11 Creatinine 0.61 L Est GFR (Non-Af Amer) > 60 Active Medications Acetaminophen (Tylenol) 650 mg PO Q6HR PRN PRN Reason: Mild Pain Stop: 08/13/18 12:33 Last Admin: 02/14/18 06:32 Dose: 650 mg Hydrocodone Bitart/Acetaminophen ([place] 5-325 Mg) 1 tab PO Q6H PRN PRN Reason: Pain Stop: 08/13/18 12:35 Last Admin: 02/14/18 04:22 Dose: 1 tab Albuterol Sulfate (Albuterol Inhaler) 2 puff IH Q4HR PRN PRN Reason: Shortness Of Breath Stop: 08/13/18 12:35 Last Admin: 02/13/18 07:25 Dose: 2 puff Alprazolam (Xanax) 0.5 mg PO BID PRN; Protocol PRN Reason: Anxiety Stop: 08/13/18 12:35 Last Admin: 02/13/18 21:12 Dose: 0.5 mg Aspirin (Aspirin Ec) 81 mg PO DAILY UMM Stop: 08/14/18 09:01 Last Admin: 02/13/18 08:57 Dose: 81 mg Beclomethasone Dipropionate (Qvar 80 Mcg) 1 puff IH BIDR UMM Stop: 08/13/18 22:01 Last Admin: 02/13/18 19:51 Dose: 1 puff Dextrose/Water (Dextrose 50% (Syg)) 25 ml IVP AD PRN PRN Reason: Hypoglycemia Stop: 08/13/18 12:37 Diphenhydramine HCl (Benadryl) 25 mg PO HS PRN PRN Reason: Insomnia Stop: 08/13/18 12:33 Glipizide (Glucotrol Xl) 10 mg PO BIDWM UMM Stop: 08/13/18 17:01 Last Admin: 02/13/18 16:20 Dose: Not Given Glucagon (Glucagen) 1 mg IM ONCE PRN PRN Reason: Hypoglycemia Stop: 08/13/18 12:37 Glucose (Gluctose) 15 gm PO ONCE PRN PRN Reason: Hypoglycemia Stop: 08/13/18 12:37 Glucose (Gluctose) 30 gm PO ONCE PRN PRN Reason: Hypoglycemia Stop: 08/13/18 12:37 Heparin Sodium (Porcine) (Heparin) 4,000 unit IVP Q6HR PRN PRN Reason: SEE COMMENTS Stop: 08/13/18 12:36 Heparin Sodium (Porcine) (Heparin) 2,000 unit IVP Q6H PRN PRN Reason: SEE COMMENTS Stop: 08/13/18 12:36 Last Admin: 02/12/18 21:59 Dose: 2,000 unit Heparin Sodium/Dextrose (Heparin 25,000 Unit/500 Ml D5w) 25,000 unit in 500 mls @ 20.357 mls/hr IVC .Q24H UMM; 11 UNIT/KG/HR PRN Reason: Protocol Stop: 08/13/18 12:46 Last Admin: 02/13/18 14:13 Dose: 13.18 unit/kg/hr, 24.4 mls/hr Dextrose (Dextrose 5%) 1,000 mls @ 100 mls/hr IVC .Q10H PRN PRN Reason: HYPOGLYCEMIA Stop: 08/13/18 12:37 Insulin Human Lispro (Humalog) 0 units SQ Q6HR UMM PRN Reason: Protocol Stop: 08/13/18 18:01 Last Admin: 02/14/18 05:44 Dose: Not Given Ondansetron HCl (Zofran) 4 mg IVP Q6HR PRN; Protocol PRN Reason: Nausea And Vomiting Stop: 08/13/18 12:33 Pharmacy Profile Note (Patient Taking Own Medication) 0.5 each SQ QWEEK UMM Stop: 08/13/18 12:46 Last Admin: 02/11/18 15:31 Dose: Not Given Rosuvastatin Calcium (Crestor) 20 mg PO HS UMM Stop: 08/13/18 21:01 Last Admin: 02/13/18 21:13 Dose: Not Given Consult Discharge Plan - Plan Referrals: Villa Chan DO [Primary Care Provider] - 02/18/18 12:00 pm
[2018-02-14] MEDS: Beclomethasone 80mcg MDI IH SCH ×2 (08:07→20:12)
[2018-02-14] MEDS: *HR* GlipiZIDE XL (24 HR) 10 MG TABLET PO SCH ×2 (08:25→16:32)
[2018-02-14] MEDS: Aspirin Enteric Coated 81 MG Tablet PO SCH (08:25)
[2018-02-14] MEDS: ALPRAZolam 0.5 MG TABLET PO PRN ×2 (08:29→22:16)
--- NOTE | 2018-02-14 08:41 | Cardiothoracic Progress Note ---
Date of Encounter: 02/14/18 Time of Encounter: 08:39 - Assessment and plan (1) Chest pain Current Visit: No Status: Resolved The patient is presently scheduled for open heart surgery on Saturday. I told him that he could be done on Saturday by Dr. Woodward, but he states that he prefers to wait until Saturday. At this point he has no questions concerning surgery. Qualifiers: Chest pain type: unspecified Qualified Code(s): R07.9 - Chest pain, unspecified - Subjective Interval history: The patient states that he did take Plavix last Saturday. This would make today the fifth day off Plavix. Vital Signs, Last 4 Hours Temp Pulse Resp BP Pulse Ox 02/14/18 07:03 97.9 F 81 16 112/75 92 Clinical Data, last 8 Hours Output, Urine Amount 500 Weight 02/12/18 02/13/18 02/14/18 23:59 23:59 23:59 Weight 96.7 kg Lungs are clear to percussion and auscultation. Heart is in a normal sinus rhythm. - Labs 02/12/18 03:18 02/14/18 06:11 Lab Results, Last 24 hours 02/13/18 02/14/18 12:11 06:11 APTT 63.0 H Sodium 137 Potassium 3.8 Chloride 107 Carbon Dioxide 26 BUN 11 Creatinine 0.61 L Glucose 132 H Calcium 8.9 Consult Discharge Plan - Plan Referrals: Villa Chan DO [Primary Care Provider] - 02/18/18 12:00 pm
[2018-02-14] MEDS: Heparin 25,000 UNIT/500 ML D5W 25,000 UNIT/500 ML BAG IVC SCH (11:38)
[2018-02-15] MEDS: Insulin LISPRO 300 UNITS/3 ML VIAL SQ SCH ×4 (00:09→18:01)
[2018-02-15] MEDS: *HR* HYDROcodone/Acet 5/325 mg TABLET PO PRN ×3 (03:18→18:05)
--- NOTE | 2018-02-15 07:48 | Cardiology Progress Note ---
Date of Encounter: 02/15/18 Time of Encounter: 07:50 Assessment and Plan (1) CAD (coronary artery disease) Current Visit: Yes Status: Chronic Per Cardiology: Hx of CAD s/p prior PCI. Awaiting CABG Saturday. On IV Hep gtt, asa, statin. Not on BB d/t bradycardia, no events on tele, avg HR 58. Qualifiers: Coronary Disease-Associated Artery/Lesion type: [place] artery [place] vs. transplanted heart: [place] heart Associated angina: with unstable angina Qualified Code(s): I25.110 - Atherosclerotic heart disease of [place] coronary artery with unstable angina pectoris Discussion w patient/family: The assessment and plan as outlined above was discussed with the patient and/or family members who expressed understanding and agreement. All questions were answered. Thank you for involving us in the care of your patient. Please call with any questions. Subjective Principal diagnosis: CAD, multi-vessel Interval history: Denies any concerns over night. Chest pain-free. Objective Selected Entries 02/15/18 03:41 02/15/18 08:04 Temperature 97.5 F L Pulse Rate 53 Respiratory Rate 16 O2 Sat by Pulse Oximetry 96 Oxygen Delivery Method Room Air General: Conversant, No Apparent Distress Cardiac: Reg Rate and Rhythm, Normal S1 and S2, No Murmur Lungs: Normal Breath Sounds, No Wheeze, Rales, Rhonchi Neuro: Alert and responsive, No focal deficits noted Extremities: No Edema Results 02/12/18 03:18 02/14/18 06:11 Lab Results Impressions Chest X-Ray 02/15/18 00:01 IMPRESSION: Normal chest x-ray D/ / Marcus Thompson MD / Marcus Thompson MD Interpreting Provider: Marcus Thompson MD - EKG Interpretation EKG results cardiology: other (Tele shows avg HR 58, no events) Consult Discharge Plan - Plan Referrals: Villa Chan DO [Primary Care Provider] - 02/18/18 12:00 pm
[2018-02-15] MEDS: Beclomethasone 80mcg MDI IH SCH ×2 (08:04→20:51)
--- NOTE | 2018-02-15 08:06 | Cardiothoracic Progress Note ---
Date of Encounter: 02/15/18 Time of Encounter: 08:04 - Assessment and plan (1) CAD (coronary artery disease) Current Visit: Yes Status: Chronic The assessment and plan as outlined above was discussed with the patient and/or family members who expressed understanding and agreement. All questions were answered. The patient is scheduled for open heart surgery on Saturday. He has no questions. I will discontinue his heparin drip at 5 AM Saturday morning. Qualifiers: Coronary Disease-Associated Artery/Lesion type: [place] artery [place] vs. transplanted heart: [place] heart Associated angina: with unstable angina Qualified Code(s): I25.110 - Atherosclerotic heart disease of [place] coronary artery with unstable angina pectoris - Subjective Interval history: The patient has numerous skeletal and musculature pains, particularly in his left shoulder. He takes opioids on a chronic basis for this. Clinical Data, last 8 Hours Output, Urine Amount 350 Output, Urine Amount 300 Output, Urine Amount 200 Weight 02/13/18 02/14/18 02/15/18 23:59 23:59 23:59 Weight 93.5 kg Lungs are clear to percussion and auscultation. Heart is in a normal sinus rhythm. - Labs 02/12/18 03:18 02/14/18 06:11 Lab Results, Last 24 hours 02/14/18 11:43 APTT 68.1 H Consult Discharge Plan - Plan Referrals: Villa Chan DO [Primary Care Provider] - 02/18/18 12:00 pm
[2018-02-15] MEDS: Aspirin Enteric Coated 81 MG Tablet PO SCH (08:47)
[2018-02-15] MEDS: *HR* GlipiZIDE XL (24 HR) 10 MG TABLET PO SCH ×2 (08:47→18:05)
[2018-02-15] MEDS: Heparin 25,000 UNIT/500 ML D5W 25,000 UNIT/500 ML BAG IVC SCH (08:48)
[2018-02-15 08:52] LABS: Basophils # 0.1 K/mcL (0.0-0.2); Basophils % 0.6 %; Eosinophils # 0.3 K/mcL (0.0-0.6); Eosinophils % 3.4 %; Hematocrit 47.6 % (37.5-50.1); Immature Granulocytes % 0.5 % (0-4); Lymphocytes # 3.2 K/mcL (0.6-4.6); Lymphocytes % 35.7 %; Mean Corpuscular HGB Conc 33.6 g/dL (31.6-35.5); Mean Corpuscular Volume 86.4 fL (83.0-100.0); Mean Platelet Volume 10.7 fL (9.4-12.4); Monocytes # 0.8 K/mcL (0.0-1.3); Monocytes % 9.4 %; Neutrophils # 4.5 K/mcL (1.6-8.9); Platelet Count 152 K/mcL (140-400); Red Blood Count 5.51 M/mcL (4.19-5.50); Red Cell Distribution Width 12.8 % (11.5-14.5); Segmented Neutrophils % 50.4 %
[2018-02-15 09:03] LABS: INR 1.1; Prothrombin Time 11.5 Seconds (9.4-12.1)
[2018-02-15 09:12] LABS: Chol/HDL Ratio 4.2 (0-4.9)
[2018-02-15] MEDS: ALPRAZolam 0.5 MG TABLET PO PRN (13:31)
[2018-02-16] MEDS: Insulin LISPRO 300 UNITS/3 ML VIAL SQ SCH ×4 (00:23→18:02)
[2018-02-16] MEDS: *HR* HYDROcodone/Acet 5/325 mg TABLET PO PRN ×4 (00:30→22:39)
[2018-02-16] MEDS: ALPRAZolam 0.5 MG TABLET PO PRN ×2 (00:31→20:33)
[2018-02-16 00:50] LABS: Bilirubin,Urine Negative (Negative); Blood,Urine Negative (Negative); Clarity,Urine Clear (Clear); Color,Urine Yellow (Yellow); Glucose,Urine (UA) Normal (Normal); Ketones,Urine Negative (Negative); Leukocyte Esterase,Urine Negative (Negative); Nitrite,Urine Negative (Negative); PH,Urine 6.5 pH Units (5.0-8.0); Protein,Urine Negative (Neg-Trace); Urobilinogen,Urine Normal (Normal)
[2018-02-16] MEDS: Heparin 25,000 UNIT/500 ML D5W 25,000 UNIT/500 ML BAG IVC SCH (05:22)
[2018-02-16] MEDS: *HR* GlipiZIDE XL (24 HR) 10 MG TABLET PO SCH ×2 (08:41→18:00)
[2018-02-16] MEDS: Aspirin Enteric Coated 81 MG Tablet PO SCH (08:41)
[2018-02-16] MEDS: Beclomethasone 80mcg MDI IH SCH ×2 (08:55→21:48)
[2018-02-16 09:05] LABS: Estimated Average Glucose 189 mg/dl; Hemoglobin A1C 8.2 %
--- NOTE | 2018-02-16 09:37 | Cardiology Progress Note ---
Date of Encounter: 02/16/18 Time of Encounter: 08:45 Assessment and Plan (1) CAD (coronary artery disease) Current Visit: Yes Status: Chronic Per Cardiology: Hx of CAD s/p prior PCI. Awaiting CABG Saturday. On IV Hep gtt, asa, statin. Not on BB d/t bradycardia. Qualifiers: Coronary Disease-Associated Artery/Lesion type: [place] artery [place] vs. transplanted heart: [place] heart Associated angina: with unstable angina Qualified Code(s): I25.110 - Atherosclerotic heart disease of [place] coronary artery with unstable angina pectoris Discussion w patient/family: The assessment and plan as outlined above was discussed with the patient and/or family members who expressed understanding and agreement. All questions were answered. Thank you for involving us in the care of your patient. Please call with any questions. Subjective Principal diagnosis: CAD, multi-vessel Interval history: Denies any concerns over night. Chest pain-free. Objective Vital Signs, Last 4 Hours Temp Pulse Resp BP Pulse Ox 02/16/18 08:55 16 94 02/16/18 06:53 97.7 F 62 15 126/84 93 General: Conversant, No Apparent Distress HEENT: Atraumatic, Normocephaly, Mucus Membranes Moist Neck: No JVD, Normal carotid pulses Cardiac: Reg Rate and Rhythm, Normal S1 and S2, No Murmur Lungs: Normal Breath Sounds, No Wheeze, Rales, Rhonchi Neuro: Alert and responsive, No focal deficits noted Abdomen: Soft, Non-Tender Skin: No rashes noted on visualized skin Musculoskeletal: No Chest Wall Tenderness Extremities: No Clubbing, No Cyanosis, No Edema, Normal Pulses Results 02/15/18 08:30 02/14/18 06:11 Lab Results Active Medications Acetaminophen (Tylenol) 650 mg PO Q6HR PRN PRN Reason: Mild Pain Stop: 08/13/18 12:33 Last Admin: 02/14/18 06:32 Dose: 650 mg Hydrocodone Bitart/Acetaminophen ([place] 5-325 Mg) 1 tab PO Q6H PRN PRN Reason: Pain Stop: 08/13/18 12:35 Last Admin: 02/16/18 08:41 Dose: 1 tab Albuterol Sulfate (Albuterol Inhaler) 2 puff IH Q4HR PRN PRN Reason: Shortness Of Breath Stop: 08/13/18 12:35 Last Admin: 02/13/18 07:25 Dose: 2 puff Alprazolam (Xanax) 0.5 mg PO BID PRN; Protocol PRN Reason: Anxiety Stop: 08/13/18 12:35 Last Admin: 02/16/18 00:31 Dose: 0.5 mg Aspirin (Aspirin Ec) 81 mg PO DAILY UMM Stop: 08/14/18 09:01 Last Admin: 02/16/18 08:41 Dose: 81 mg Aspirin (Aspirin) 81 mg PO 0600 ONE Stop: 02/18/18 08:10 Beclomethasone Dipropionate (Qvar 80 Mcg) 1 puff IH BIDR UMM Stop: 08/13/18 22:01 Last Admin: 02/16/18 08:55 Dose: 1 puff Chlorhexidine Gluconate (Chlorhexidine Rinse) 15 ml MM BID UMM Stop: 02/17/18 21:01 Dextrose/Water (Dextrose 50% (Syg)) 25 ml IVP AD PRN PRN Reason: Hypoglycemia Stop: 08/13/18 12:37 Diphenhydramine HCl (Benadryl) 25 mg PO HS PRN PRN Reason: Insomnia Stop: 08/13/18 12:33 Glipizide (Glucotrol Xl) 10 mg PO BIDWM UMM Stop: 08/13/18 17:01 Last Admin: 02/16/18 08:41 Dose: 10 mg Glucagon (Glucagen) 1 mg IM ONCE PRN PRN Reason: Hypoglycemia Stop: 08/13/18 12:37 Glucose (Gluctose) 15 gm PO ONCE PRN PRN Reason: Hypoglycemia Stop: 08/13/18 12:37 Glucose (Gluctose) 30 gm PO ONCE PRN PRN Reason: Hypoglycemia Stop: 08/13/18 12:37 Heparin Sodium (Porcine) (Heparin) 4,000 unit IVP Q6HR PRN PRN Reason: SEE COMMENTS Stop: 02/18/18 05:00 Heparin Sodium (Porcine) (Heparin) 2,000 unit IVP Q6H PRN PRN Reason: SEE COMMENTS Stop: 02/18/18 05:00 Last Admin: 02/12/18 21:59 Dose: 2,000 unit Heparin Sodium/Dextrose (Heparin 25,000 Unit/500 Ml D5w) 25,000 unit in 500 mls @ 20.357 mls/hr IVC .Q24H UMM; 11 UNIT/KG/HR PRN Reason: Protocol Stop: 02/18/18 05:00 Last Admin: 02/16/18 05:22 Dose: 13.18 unit/kg/hr, 24.4 mls/hr Dextrose (Dextrose 5%) 1,000 mls @ 100 mls/hr IVC .Q10H PRN PRN Reason: HYPOGLYCEMIA Stop: 08/13/18 12:37 Cefazolin Sodium (Ancef Syringe 2,000 Mg/20 Ml) 2,000 mg in 20 mls @ 200 mls/ hr IVPB PREOP ONE Stop: 02/18/18 08:14 Insulin Human Lispro (Humalog) 0 units SQ Q6HR UMM PRN Reason: Protocol Stop: 08/13/18 18:01 Last Admin: 02/16/18 06:00 Dose: Not Given Metoprolol Tartrate (Lopressor) 25 mg PO 0600 ONE Stop: 02/18/18 08:10 Ondansetron HCl (Zofran) 4 mg IVP Q6HR PRN; Protocol PRN Reason: Nausea And Vomiting Stop: 08/13/18 12:33 Pharmacy Profile Note (Patient Taking Own Medication) 0.5 each SQ QWEEK UMM Stop: 08/13/18 12:46 Last Admin: 02/11/18 15:31 Dose: Not Given Rosuvastatin Calcium (Crestor) 20 mg PO HS UMM Stop: 08/13/18 21:01 Last Admin: 02/15/18 20:06 Dose: Not Given Consult Discharge Plan - Plan Referrals: Villa Chan DO [Primary Care Provider] - 02/18/18 12:00 pm
[2018-02-17] MEDS: Insulin LISPRO 300 UNITS/3 ML VIAL SQ SCH ×4 (01:03→21:18)
[2018-02-17] MEDS: Heparin 25,000 UNIT/500 ML D5W 25,000 UNIT/500 ML BAG IVC SCH ×2 (03:02→23:58)
[2018-02-17] MEDS: Beclomethasone 80mcg MDI IH SCH ×2 (07:48→19:42)
[2018-02-17] MEDS: Aspirin Enteric Coated 81 MG Tablet PO SCH (08:51)
[2018-02-17] MEDS: ALPRAZolam 0.5 MG TABLET PO PRN ×2 (08:51→22:52)
[2018-02-17] MEDS: *HR* HYDROcodone/Acet 5/325 mg TABLET PO PRN ×3 (08:51→21:18)
[2018-02-17] MEDS: *HR* GlipiZIDE XL (24 HR) 10 MG TABLET PO SCH ×2 (08:51→18:08)
[2018-02-17] MEDS: Chlorhexidine Rinse 15 ML MOUTHWASH MM SCH ×2 (08:52→21:18)
--- NOTE | 2018-02-17 09:11 | Anesthesia Evaluation PreOp ---
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: Other (anxiety, neuropathy right lower extremity and foot) Other Medical History: Diabetes Type II, GERD, Other (RCT left shoulder) Anesthesia History: No Prior Anesthetic Complications, Past Anesthesia Alcohol Use: none Drug use: none Medications and Allergies ALPRAZolam [Xanax 0.5 MG Tablet] 0.5 mg PO BID PRN 07/29/15 [History] Budesonide/Formoterol 160/4.5 [Symbicort 160/4.5] 2 puff IH BIDR PRN 07/29/15 [ History] Fluticasone Propionate [Flovent Diskus] 1 puff IH BID PRN 07/29/15 [History] Aspirin Enteric Coated [Aspirin EC] 81 mg PO DAILY 07/31/15 [History] HYDROcodone/Acet 5/325 mg [Joiner 5-325 mg] 1 tab PO Q6H PRN 12/15/15 [History] Dulaglutide [Trulicity] 0.75 mg SQ QWEEK 01/23/18 [History] GlipiZIDE [Glipizide ER] 10 mg PO BID 01/23/18 [History] Metformin HCl [Metformin HCl ER] 500 mg PO DAILY 01/23/18 [History] Nitroglycerin [Nitrostat] 0.4 mg PO Q5MIN PRN 01/23/18 [History] Albuterol Sulfate [Albuterol Inhaler] 2 puff IH Q4HR PRN inhaler 01/26/18 [Rx] Clopidogrel [Plavix] 75 mg PO DAILY #30 tablet 01/26/18 [Rx] Rosuvastatin [Crestor] 20 mg PO HS #30 tablet 01/26/18 [Rx] Montelukast [Singulair] 10 mg PO DAILY 02/12/18 [History] 3 Allergy/AdvReac Type Severity Reaction Status Date / Time atorvastatin [From Lipitor] AdvReac Nausea Verified 01/23/18 09:12 metoprolol AdvReac Nausea Verified 01/23/18 09:12 - Meds/Allergy Pre-op Review Medications Reviewed: Yes Allergies Reviewed: Yes Beta Blockers on Current Med List: No (patient states it drops his HR too low) Anesthesia Results - Labs 02/15/18 08:30 02/14/18 06:11 - Imaging EKG: report reviewed, image reviewed Chest x-ray: report reviewed, image reviewed Additional studies: [facility] 02/11/2018 Impressions: There is severe three vessel coronary artery disease, high Syntax score with ostial RCA, SQE LAD and bifurcation LCx/OM disease The left ventricle EF 55% Recommendations: Optimal medical therapy of patient's disease. Aggressive risk factor modification. Suggest patient have Urgent coronary artery bypass surgery - suggest grafting diagonal, LAD, OM and R PDA * Left Main Coronary Artery The LMCA is angiographically free of disease. * Left Anterior Descending There is a 99% stenosis in the Proximal LAD. The lesion has a HOLLIE flow of 2. There is a 100% mid LAD lesion with right to left collaterals * Circumflex There is a 70% stenosis in the Mid Circumflex There is a 60% stenosis in the 1st Marginal. The lesion has a HOLLIE flow of 3. * Right Coronary Artery There is a 70% stenosis in the Ostial/ Proximal RCA. 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
--- NOTE | 2018-02-17 09:17 | Cardiology Progress Note ---
Date of Encounter: 02/17/18 Time of Encounter: 08:50 Assessment and Plan (1) CAD (coronary artery disease) Current Visit: Yes Status: Chronic Per Cardiology: Hx of CAD s/p prior PCI. Awaiting CABG Saturday. On IV Hep gtt, asa, statin. Not on BB d/t bradycardia. Qualifiers: Coronary Disease-Associated Artery/Lesion type: [place] artery [place] vs. transplanted heart: [place] heart Associated angina: with unstable angina Qualified Code(s): I25.110 - Atherosclerotic heart disease of [place] coronary artery with unstable angina pectoris Discussion w patient/family: The assessment and plan as outlined above was discussed with the patient and/or family members who expressed understanding and agreement. All questions were answered. Thank you for involving us in the care of your patient. Please call with any questions. Subjective Principal diagnosis: CAD, multi-vessel Interval history: Denies any concerns over night. Chest pain-free. Objective Vital Signs, Last 4 Hours Temp Pulse Resp BP Pulse Ox 02/17/18 07:49 16 93 02/17/18 06:59 97.7 F 62 16 102/70 96 General: Conversant, No Apparent Distress HEENT: Atraumatic, Normocephaly, Mucus Membranes Moist Neck: No JVD, Normal carotid pulses Cardiac: Reg Rate and Rhythm, Normal S1 and S2, No Murmur Lungs: Normal Breath Sounds, No Wheeze, Rales, Rhonchi Neuro: Alert and responsive, No focal deficits noted Abdomen: Soft, Non-Tender Skin: No rashes noted on visualized skin Musculoskeletal: No Chest Wall Tenderness Extremities: No Clubbing, No Cyanosis, No Edema, Normal Pulses Results 02/15/18 08:30 02/14/18 06:11 Lab Results 02/16/18 13:16 APTT 77.9 H Consult Discharge Plan - Plan Referrals: Villa Chan DO [Primary Care Provider] - 02/18/18 12:00 pm
[2018-02-17] MEDS ORDERED: Norepinephrine 4 MG in D5% in Water 250 ML IVC PRN (17:04)
[2018-02-17] MEDS ORDERED: Dextrose 50 % in Water (Vial) 30 ML, Sodium Bicarbonate 20 MEQ, Potassium Chloride 15 M... TH ONE (17:04)
[2018-02-17] MEDS ORDERED: Insulin Human Regular 100 UNIT in 0.9 % Sodium Chloride 100 ML IV PRN (17:04)
--- NOTE | 2018-02-17 17:20 | Cardiothoracic Progress Note ---
Date of Encounter: 02/18/18 Time of Encounter: 17:19 - Assessment and plan (1) CAD (coronary artery disease) Current Visit: Yes Status: Chronic The patient is scheduled for CABG in the morning by Dr. Deniz Romo. He has no questions at this time. The assessment and plan as outlined above was discussed with the patient and/or family members who expressed understanding and agreement. All questions were answered. Qualifiers: Coronary Disease-Associated Artery/Lesion type: [place] artery [place] vs. transplanted heart: [place] heart Associated angina: with unstable angina Qualified Code(s): I25.110 - Atherosclerotic heart disease of [place] coronary artery with unstable angina pectoris - Subjective Interval history: The patient has remained hemodynamic stable. He has no complaints of substernal chest pain. Vital Signs, Last 4 Hours Temp Pulse Resp BP Pulse Ox 02/17/18 15:22 98.0 F 63 16 101/64 93 Weight 02/15/18 02/16/18 02/17/18 23:59 23:59 23:59 Weight 93.5 kg 95 kg 96.1 kg - Physical Examination General: Conversant, No Apparent Distress Neck: No JVD, Normal carotid pulses Cardiac: Reg Rate and Rhythm, Normal S1 and S2, No Murmur Lungs: Normal Breath Sounds, No Wheeze, Rales, Rhonchi Neuro: Alert and responsive, No focal deficits noted Vascular: Normal capillary refill Musculoskeletal: No Chest Wall Tenderness Extremities: No Clubbing, No Cyanosis, No Edema - Labs 02/15/18 08:30 02/14/18 06:11 Lab Results, Last 24 hours 02/17/18 13:37 APTT 63.1 H Consult Discharge Plan - Plan Referrals: Villa Chan DO [Primary Care Provider] - 02/18/18 12:00 pm
[2018-02-18] MEDS: Insulin LISPRO 300 UNITS/3 ML VIAL SQ SCH ×2 (00:21→06:32)
[2018-02-18] MEDS ORDERED: Dextrose 50 % in Water (Vial) 30 ML, Sodium Bicarbonate 20 MEQ, Lidocaine 1% 5 ML, Insu... TH SCH (02:00)
[2018-02-18] MEDS ORDERED: Aspirin 81 MG TAB.CHEW PO ONE (06:00)
[2018-02-18] MEDS ORDERED: Verapamil 5 MG/2 ML VIAL ONE (06:40)
[2018-02-18] MEDS ORDERED: *HR* Midazolam HCl 5 MG/5 ML VIAL IVP ONE (06:54)
[2018-02-18] MEDS ORDERED: *HR* FentaNYL (PF) 1,000 MCG/20 ML VIAL ONE (06:55)
[2018-02-18] MEDS ORDERED: *HR* Rocuronium Bromide 50 MG/5 ML VIAL ONE (06:57)
[2018-02-18] MEDS ORDERED: *HR* Magnesium Sulfate 1 GM/2 ML VIAL ONE (06:58)
[2018-02-18] MEDS ORDERED: *HR* Propofol 200 MG/20 ML VIAL IVP ONE (07:00)
[2018-02-18] MEDS ORDERED: Lidocaine 2% Syringe 100 MG/5 ML ONE (07:01)
[2018-02-18] MEDS ORDERED: Nitroglycerin 25 MG/250 ML INFUS..BTL IVC ONE ×2 (07:03→09:48)
[2018-02-18] MEDS: Beclomethasone 80mcg MDI IH SCH ×2 (07:35→20:18)
[2018-02-18 08:04] LABS: ABG Base Excess 1 mEq/L (-2 to 3); ABG Chloride 106 mEq/L (98-107); ABG Glucose 106 mg/dL (60-95); ABG HCO3 30 mEq/L (21-27); ABG Ionized Calcium 1.21 mmol/L (1.15-1.35); ABG Oxygen Saturation 100 % (95-98); ABG PCO2 60 mmHg (35-45); ABG PO2 325 mmHg (85-104); ABG TCO2 31 mEq/L (20-26)
[2018-02-18] MEDS ORDERED: CeFAZolin Syr 2,000MG/20 ML 2,000 MG/20 ML SYRINGE IVPB ONE (08:09)
[2018-02-18] MEDS ORDERED: Tranexamic Acid 1,000 MG/10 ML VIAL ONE (08:26)
[2018-02-18] MEDS ORDERED: *HR* FentaNYL (PF) 250 MCG/5 ML VIAL ONE ×2 (08:48→09:13)
[2018-02-18] MEDS ORDERED: Chlorhexidine Rinse 15 ML MOUTHWASH MM SCH (09:00)
[2018-02-18] MEDS ORDERED: Famotidine 20 MG/2 ML VIAL ONE (09:08)
[2018-02-18 09:18] LABS: ABG Base Excess 0 mEq/L (-2 to 3); ABG Chloride 109 mEq/L (98-107); ABG Glucose 140 mg/dL (60-95); ABG HCO3 25 mEq/L (21-27); ABG Ionized Calcium 1.18 mmol/L (1.15-1.35); ABG Oxygen Saturation 100 % (95-98); ABG PCO2 42 mmHg (35-45); ABG PH 7.38 pH Units (7.32-7.45); ABG PO2 193 mmHg (85-104); ABG TCO2 26 mEq/L (20-26)
[2018-02-18 09:55] LABS: ABG Base Excess 1 mEq/L (-2 to 3); ABG Chloride 101 mEq/L (98-107); ABG Glucose 190 mg/dL (60-95); ABG HCO3 25 mEq/L (21-27); ABG Ionized Calcium 0.98 mmol/L (1.15-1.35); ABG Oxygen Saturation 100 % (95-98); ABG PCO2 35 mmHg (35-45); ABG PH 7.46 pH Units (7.32-7.45); ABG PO2 601 mmHg (85-104); ABG TCO2 26 mEq/L (20-26)
--- NOTE | 2018-02-18 10:04 | Anesthesia Procedures ---
Date of Encounter: 02/18/18 Time of Encounter: 10:02 Procedures: Anesthesia - Arterial Line Consent obtained: written consent Time out performed: Yes Supplemental Oxygen via Nasal Cannula (L/min): 2 Local Anesthetic: Lidocaine 1% Size (Gauge): 20 Length (inches): 1 3/4 Technique Used: sterile prep, direct puncture technique Post-Procedure: dry sterile dressing placed Patient tolerated procedure: well Complications: none Site: Radial L Vitals: see anesthesia chart - Central Line Placement Left IJ Consent obtained: written consent Time out performed: Yes Patient placed on monitor/pulse ox: Yes prep: mask, gown, gloves Central line prep: Chlorhexidine scrub Ultrasound used for placement: Yes Technique: Patriciadinger Size / Length: 9 Fr / 10 cm Post procedure: sutured in place, good blood return Patient tolerated procedure: well Complications: none Vitals: see anesthesia chart Comments: PAC inserted using pressure waveform analysis. Secured at 45 cm
[2018-02-18 10:21] LABS: ABG Base Excess 3 mEq/L (-2 to 3); ABG Chloride 99 mEq/L (98-107); ABG Glucose 224 mg/dL (60-95); ABG HCO3 27 mEq/L (21-27); ABG Ionized Calcium 0.98 mmol/L (1.15-1.35); ABG Oxygen Saturation 100 % (95-98); ABG PCO2 37 mmHg (35-45); ABG PH 7.47 pH Units (7.32-7.45); ABG PO2 441 mmHg (85-104); ABG TCO2 28 mEq/L (20-26)
[2018-02-18 10:49] LABS: ABG Base Excess 3 mEq/L (-2 to 3); ABG Chloride 101 mEq/L (98-107); ABG Glucose 177 mg/dL (60-95); ABG HCO3 27 mEq/L (21-27); ABG Ionized Calcium 1.01 mmol/L (1.15-1.35); ABG Oxygen Saturation 100 % (95-98); ABG PCO2 38 mmHg (35-45); ABG PH 7.46 pH Units (7.32-7.45); ABG PO2 430 mmHg (85-104); ABG TCO2 28 mEq/L (20-26)
[2018-02-18] MEDS ORDERED: Protamine Sulfate 250 MG/25 ML VIAL IVP ONE (11:07)
[2018-02-18] MEDS ORDERED: Ondansetron 4 MG/2 ML VIAL ONE (11:14)
[2018-02-18 11:25] LABS: ABG Base Excess 0 mEq/L (-2 to 3); ABG Chloride 104 mEq/L (98-107); ABG Glucose 154 mg/dL (60-95); ABG HCO3 25 mEq/L (21-27); ABG Oxygen Saturation 100 % (95-98); ABG PCO2 42 mmHg (35-45); ABG PH 7.39 pH Units (7.32-7.45); ABG PO2 252 mmHg (85-104); ABG TCO2 27 mEq/L (20-26)
[2018-02-18] MEDS ORDERED: Insulin Regular, Human 100 UNIT/ML IV PRN (11:55)
[2018-02-18] MEDS ORDERED: Naloxone 0.4 MG/ML INJ IVP PRN (11:55)
[2018-02-18] MEDS ORDERED: *HR* Promethazine 25 MG/ML VIAL IVP PRN (11:55)
[2018-02-18] MEDS: Nitroglycerin 25 MG/250 ML INFUS..BTL IVC SCH ×2 (11:55→21:08)
[2018-02-18] MEDS ORDERED: *HR* Dextrose 50 % in Water (Syg) 50 ML SYRINGE IVP PRN (11:55)
[2018-02-18] MEDS ORDERED: Potassium Chloride 40 MEQ/200 ML BAG IVPB PRN (11:55)
[2018-02-18 12:22] LABS: Basophils % 0.3 %; Immature Granulocytes % 0.7 % (0-4); Red Cell Distribution Width 12.6 % (11.5-14.5)
[2018-02-18 12:24] LABS: Eosinophils # 0.2 K/mcL (0.0-0.6); Eosinophils % 1.4 %; Hematocrit 37.1 % (37.5-50.1); Hemoglobin 12.7 g/dL (12.9-16.9); Immature Platelets 4.8 % (1.1-6.1); Lymphocytes % 13.7 %; Mean Corpuscular HGB Conc 34.2 g/dL (31.6-35.5); Mean Corpuscular Hemoglobin 29.5 pg (28.0-33.3); Mean Corpuscular Volume 86.1 fL (83.0-100.0); Mean Platelet Volume 10.5 fL (9.4-12.4); Monocytes # 0.9 K/mcL (0.0-1.3); Monocytes % 5.8 %; Red Blood Count 4.31 M/mcL (4.19-5.50); Segmented Neutrophils % 78.1 %
[2018-02-18 12:26] LABS: ABG Base Excess 2 mEq/L (-2 to 3); ABG HCO3 27 mEq/L (21-27); ABG Oxygen Saturation 96 % (95-98); ABG PCO2 44 mmHg (35-45); ABG PO2 82 mmHg (85-104); ABG TCO2 28 mEq/L (20-26); Blood Gas Modality ASSIST CONTROL; Blood Gas PEEP 5 cm H2O; Blood Gas Respiration Rate 10; Blood Gas VT 700 cc
[2018-02-18] MEDS: *HR* FentaNYL (PF) 100 MCG/2 ML VIAL IVP PRN ×5 (12:26→19:38)
[2018-02-18] MEDS: 0.9 % Sodium Chloride w KCl 20 MEQ/1,000 ML MLS IVC SCH (12:27)
[2018-02-18] MEDS: Heparin 15,000 UNIT in 0.9 % Sodium Chloride 500 ML IV SCH (12:27)
[2018-02-18] MEDS: *HR* GlipiZIDE XL (24 HR) 10 MG TABLET PO SCH ×2 (12:28→19:33)
[2018-02-18] MEDS: niCARdipine 40 MG/200 ML MLS IVC SCH ×2 (12:28→12:42)
[2018-02-18] MEDS: Aspirin Enteric Coated 81 MG Tablet PO SCH (12:28)
[2018-02-18] MEDS: Norepinephrine 4 MG in D5% in Water 250 ML IVC SCH (12:29)
[2018-02-18] MEDS: Insulin Human Regular 100 UNIT in 0.9 % Sodium Chloride 100 ML IVC SCH ×2 (12:29→14:03)
[2018-02-18 12:32] LABS: Neutrophils # 11.6 K/mcL (1.6-8.9); Platelet Count 82 K/mcL (140-400)
[2018-02-18 12:34] LABS: INR 1.2
[2018-02-18 12:37] LABS: Activated Partial Thrombo Time 30.2 Seconds (26.0-36.0)
[2018-02-18] MEDS ORDERED: Tranexamic Acid 1,000 MG/10 ML VIAL IVPB ONE (12:37)
[2018-02-18] MEDS ORDERED: Mannitol 25% vial 12.5 GM/50 ML VIAL IVP ONE (12:37)
[2018-02-18] MEDS ORDERED: *HR* Phenylephrine 10 MG/ML VIAL IVC ONE (12:37)
[2018-02-18] MEDS ORDERED: Albumin Human 25% 25 GM/100 ML IV.SOLN IV ONE (12:37)
[2018-02-18] MEDS ORDERED: Lidocaine 2% Syringe 100 MG/5 ML IV ONE (12:37)
[2018-02-18] MEDS ORDERED: Heparin 1,000 UNITS/500 mL IV.SOLN IVC ONE (12:37)
[2018-02-18] MEDS ORDERED: *HR* Heparin 10,000 UNIT/10 ML VIAL IV ONE (12:37)
[2018-02-18] MEDS ORDERED: *HR* Magnesium Sulfate 2 GM/50 ML PIGGYBACK IVPB ONE (12:37)
[2018-02-18 12:39] LABS: Prothrombin Time 13.1 Seconds (9.4-12.1)
[2018-02-18 12:44] LABS: BUN/Creatinine Ratio 17 (6-26); Blood Urea Nitrogen 11 mg/dL (6-20); Calcium 7.8 mg/dL (8.6-10.3); Carbon Dioxide 26 mEq/L (23-29); Chloride 108 mEq/L (98-107); Glucose 112 mg/dL (70-105); Magnesium 2.6 mg/dL (1.6-2.6); Osmolality,Calculated 286 (280-300); Potassium 3.9 mEq/L (3.5-5.1); Sodium 138 mEq/L (136-145); eGFR For African Americans > 60 (> 60); eGFR For Non-African Americans > 60 (> 60)
--- NOTE | 2018-02-18 12:53 | Operative Note ---
Date of procedure: 02/18/18 Was there an dental assistant teacher present: Yes Email Manager: Buddy [place] Estimated blood loss (cc): 750 Specimen: none Condition: stable Disposition: ICU Procedure in Detail: Preoperative diagnosis. Coronary artery disease. Postoperative diagnosis. Same. Procedures. Coronary artery bypass grafting 3 with the left internal mammary artery to the LAD and saphenous vein grafts to the obtuse marginal branch of the circumflex and posterior descending branch of the right. Surgeon. Dr. Deniz Romo. The patient is a 58-year-old gentleman who has had previous stent placement. He is also had a previous myocardial infarction. He has been bedridden for 5 years according to his family because of heart disease and joint problems. He does smoke and does take chronic narcotics. Cardiac catheterization revealed severe coronary artery disease and he was referred for surgery. We did stop his Plavix last week. He is brought to the operating room today where he was prepped and draped in standard fashion. The right greater saphenous vein was harvested from the right knee to the right groin. This was done through 2 small incisions using the scope. These incisions were subsequently closed with a deep layer of 0 Vicryl and a 2-0 Vicryl subcuticular stitch. Standard median sternotomy was performed. The left internal mammary artery retractor was inserted and the left internal mammary artery was harvested in standard fashion using the Bovie electrocoagulation. Following this, the mammary retractor was removed and the standard sternal service supervisor was inserted. Pericardium was opened in the midline and suspended with 2-0 silk stay sutures. A double pursestring of 2-0 silk was placed in the aorta for the aortic cannulation site. A pursestring of 20 [place] was placed in the right atrial appendage for the venous uptake. The patient was heparinized. The aorta was cannulated without difficulty. 2 stage venous uptake cannula was inserted through the right atrial appendage. A pursestring of 3-0 silk was placed in the aorta and the cardioplegia needle was inserted through here. This was also used as an active and passive aortic vent. The patient was placed on cardiopulmonary bypass and cooled to 34.7 degrees. The aorta was crossclamped and a liter of antegrade cardioplegia was given. Topical cooling with iced saline slush was also used. Attention was first turned to the right coronary artery. The posterior descending branch was dissected free with the Rosebud blade and opened with a Rosebud blade and the [place] scissors. This had a lumen of 1-1/2 mm and had mild diffuse disease. A standard end-to-side anastomosis was constructed using the saphenous vein and a 7-0 Prolene. When this is completed, the patient received an additional dose of antegrade cardioplegia. Attention was turned to the circumflex. The obtuse marginal branch was dissected free with the Rosebud blade and opened with a Rosebud blade and the [place] scissors. This had a lumen of 1-1/2 mm with moderate diffuse disease throughout. A standard end-to-side anastomosis was constructed using the saphenous vein and a 7-0 Prolene. When this is completed , the patient received her last dose of antegrade cardioplegia. Mammary pedicle was harvested. Tonsil clamp was placed distally and it was divided with the Metzenbaum scissors. Distal end was tied off with a 2-0 silk suture. Proximal end was trimmed and brought into the wound. The LAD was dissected free with the Rosebud blade and opened with the Rosebud blade and the [place] scissors. This was a small vessel. Had a lumen of 1 mm with severe diffuse disease throughout. A standard end-to-side anastomosis was constructed using the mammary artery and a 7-0 Prolene. When this is completed, the previously placed bulldog clamp was removed. Distal anastomosis was inspected and found to be hemostatic. The pedicle was dissected surfaces the heart using 2 interrupted 5-0 silk sutures. Cross-clamp was removed and rewarming was begun. Total cross-clamp time was 47 minutes. Side biting clamp was placed on the aorta and the cardioplegia needle was removed. 2 holes were made in the aorta using a Rosebud blade and the 4.4 mm aortic punch. 2 proximal anastomoses were constructed in standard fashion using the saphenous veins and 5-0 Prolene's. When this is completed, the side-biting clamp was removed. The grafts were de- aired using a #25-gauge needle and the previously placed bulldog clamps were removed. I did place some FloSeal and fibrillar around the distal and proximal anastomoses. Distal anastomoses were inspected and found to be hemostatic. Proximal anastomoses were marked with the marker from [employer] sponge. A periventricular pacing wires was left. 3 chest tubes were left. A 32 angle chest tube to the left pleural space. A 32 angle chest tube to the pericardial well. A 42 mediastinal chest tube. The patient was weaned from bypass requiring no pressors for support. He was decannulated and protamine was given. Hemostasis was good in the hemodynamics were good. Pericardium was loosely closed with interrupted 2-0 silk sutures. The sternum was closed with # 7 sternal wires in simple and [id number] fashion. We did use platelet rich and platelet poor plasma on the sternum and tissues above the sternum. Fascia was I Vicryl. Subcutaneous tissues with a 2-0 Vicryl. Skin was closed with a 3-0 Vicryl subcuticular stitch. The patient tolerated the procedure well and was returned intensive care unit in satisfactory and stable condition. Total bypass time was 90 minutes. Total cross-clamp time was 47 minutes. He been cooled to 34.7 degrees.
[2018-02-18] MEDS: (Dulaglutide [Trulicity] 0.5 ML) SQ SCH (12:55)
[2018-02-18] MEDS: *HR* OxyCODONE/APAP 5/325 TABLET PO PRN ×2 (13:00→21:37)
[2018-02-18] MEDS: Ondansetron 4 MG/2 ML VIAL IVP PRN (13:00)
--- NOTE | 2018-02-18 13:26 | Anesthesia Evaluation Post Op ---
Date of Encounter: 02/18/18 Time of Encounter: 13:25 - Vital Signs Vital Signs: Vital Signs/O2 Sat/Glucose, Most Recent Temp Pulse Resp BP Pulse Ox 97.7 F 63 10 120/70 96 02/18/18 03:28 02/18/18 03:28 02/18/18 13:15 02/18/18 13:15 02/18/18 13:15 Blood Glucose* 114 - Lungs Lungs: Clear Ascult./Percussion - Airway Airway: Intubated - Cardiovascular Regular Rate - Mental Status Mental Status: Sedated - Pain Pain Scale used: [place] (Faces) - Nausea Vomiting Nausea Vomiting: Not Present - Hydration Hydration: NPO - Discharge Attestation: patient remains in ICU in stable but critical condition
[2018-02-18 16:27] LABS: ABG Base Excess -2 mEq/L (-2 to 3); ABG HCO3 26 mEq/L (21-27); ABG Oxygen Saturation 91 % (95-98); ABG PCO2 57 mmHg (35-45); ABG PH 7.27 pH Units (7.32-7.45); ABG PO2 71 mmHg (85-104); ABG TCO2 28 mEq/L (20-26); Blood Gas Modality CPAP/PS
[2018-02-18 16:41] LABS: Immature Granulocytes % 1.1 % (0-4)
[2018-02-18 16:43] LABS: Basophils # 0.1 K/mcL (0.0-0.2); Basophils % 0.2 %; Eosinophils % 0.2 %; Hematocrit 40.1 % (37.5-50.1); Hemoglobin 13.4 g/dL (12.9-16.9); Lymphocytes # 2.4 K/mcL (0.6-4.6); Lymphocytes % 9.4 %; Mean Corpuscular HGB Conc 33.4 g/dL (31.6-35.5); Mean Corpuscular Hemoglobin 29.1 pg (28.0-33.3); Mean Platelet Volume 11.4 fL (9.4-12.4); Monocytes # 2.5 K/mcL (0.0-1.3); Monocytes % 9.8 %; Neutrophils # 20.1 K/mcL (1.6-8.9); Platelet Count 116 K/mcL (140-400); Red Blood Count 4.61 M/mcL (4.19-5.50); Red Cell Distribution Width 13.1 % (11.5-14.5); Segmented Neutrophils % 79.3 %
[2018-02-18 16:48] LABS: BUN/Creatinine Ratio 16 (6-26); Blood Urea Nitrogen 11 mg/dL (6-20); Carbon Dioxide 25 mEq/L (23-29); Chloride 108 mEq/L (98-107); Eosinophils # 0.1 K/mcL (0.0-0.6); Glucose 177 mg/dL (70-105); Osmolality,Calculated 292 (280-300); Potassium 4.4 mEq/L (3.5-5.1); Sodium 139 mEq/L (136-145); eGFR For African Americans > 60 (> 60); eGFR For Non-African Americans > 60 (> 60)
[2018-02-18 16:49] LABS: ABG Base Excess -1 mEq/L (-2 to 3); ABG HCO3 27 mEq/L (21-27); ABG Oxygen Saturation 94 % (95-98); ABG PCO2 56 mmHg (35-45); ABG PH 7.29 pH Units (7.32-7.45); ABG PO2 81 mmHg (85-104); ABG TCO2 28 mEq/L (20-26); Blood Gas PEEP 5 cm H2O
[2018-02-18 17:36] LABS: Platelet Estimate Slight Decrease (Normal)
[2018-02-18 17:42] LABS: ABG Base Excess 1 mEq/L (-2 to 3); ABG HCO3 28 mEq/L (21-27); ABG Oxygen Saturation 96 % (95-98); ABG PCO2 53 mmHg (35-45); ABG PH 7.33 pH Units (7.32-7.45); ABG PO2 89 mmHg (85-104); ABG TCO2 29 mEq/L (20-26)
[2018-02-18 18:57] LABS: ABG Base Excess -2 mEq/L (-2 to 3); ABG HCO3 28 mEq/L (21-27); ABG Oxygen Saturation 93 % (95-98); ABG PCO2 66 mmHg (35-45); ABG PH 7.23 pH Units (7.32-7.45); ABG PO2 83 mmHg (85-104); ABG TCO2 30 mEq/L (20-26)
[2018-02-18] MEDS: ceFAZolin 2,000 MG in 0.9 % Sodium Chloride 100 ML IVPB SCH (19:39)
[2018-02-18] MEDS: Chlorhexidine Rinse 15 ML MOUTHWASH MM SCH (20:53)
[2018-02-18 23:08] LABS: ABG Base Excess -3 mEq/L (-2 to 3); ABG HCO3 25 mEq/L (21-27); ABG Oxygen Saturation 93 % (95-98); ABG PCO2 56 mmHg (35-45); ABG PH 7.26 pH Units (7.32-7.45); ABG PO2 80 mmHg (85-104); ABG TCO2 27 mEq/L (20-26)
[2018-02-18] MEDS: *HR* HYDROcodone/Acet 5/325 mg TABLET PO PRN (23:58)
[2018-02-19] MEDS: 0.9 % Sodium Chloride w KCl 20 MEQ/1,000 ML MLS IVC SCH (02:01)
[2018-02-19] MEDS: Heparin 15,000 UNIT in 0.9 % Sodium Chloride 500 ML IV SCH (02:02)
[2018-02-19] MEDS: ceFAZolin 2,000 MG in 0.9 % Sodium Chloride 100 ML IVPB SCH (03:04)
[2018-02-19] MEDS: *HR* OxyCODONE/APAP 5/325 TABLET PO PRN ×5 (03:05→20:06)
[2018-02-19] MEDS: niCARdipine 40 MG/200 ML MLS IVC SCH ×4 (03:20→23:36)
[2018-02-19 03:52] LABS: Basophils % 0.1 %; Hematocrit 38.7 % (37.5-50.1); Hemoglobin 12.8 g/dL (12.9-16.9); Immature Granulocytes % 0.5 % (0-4); Lymphocytes # 1.7 K/mcL (0.6-4.6); Lymphocytes % 8.2 %; Mean Corpuscular HGB Conc 33.1 g/dL (31.6-35.5); Mean Corpuscular Hemoglobin 28.9 pg (28.0-33.3); Mean Corpuscular Volume 87.4 fL (83.0-100.0); Mean Platelet Volume 10.8 fL (9.4-12.4); Monocytes # 2.2 K/mcL (0.0-1.3); Monocytes % 10.5 %; Neutrophils # 16.6 K/mcL (1.6-8.9); Platelet Count 109 K/mcL (140-400); Red Blood Count 4.43 M/mcL (4.19-5.50); Red Cell Distribution Width 13.2 % (11.5-14.5); Segmented Neutrophils % 80.7 %
[2018-02-19 03:57] LABS: INR 1.1; Prothrombin Time 12.4 Seconds (9.4-12.1)
[2018-02-19 04:32] LABS: BUN/Creatinine Ratio 16 (6-26); Blood Urea Nitrogen 12 mg/dL (6-20); Carbon Dioxide 22 mEq/L (23-29); Chloride 108 mEq/L (98-107); Glucose 153 mg/dL (70-105); Osmolality,Calculated 289 (280-300); Sodium 138 mEq/L (136-145); eGFR For African Americans > 60 (> 60); eGFR For Non-African Americans > 60 (> 60)
[2018-02-19] MEDS: *HR* HYDROcodone/Acet 5/325 mg TABLET PO PRN (06:12)
[2018-02-19] MEDS: Nitroglycerin 25 MG/250 ML INFUS..BTL IVC SCH ×3 (07:36→22:39)
[2018-02-19] MEDS ORDERED: Furosemide 20 MG/2 ML VIAL IVP ONE (07:40)
--- NOTE | 2018-02-19 07:44 | Cardiothoracic Progress Note ---
Date of Encounter: 02/19/18 Time of Encounter: 07:42 - Assessment and plan (1) CAD (coronary artery disease) Current Visit: Yes Status: Chronic We will start low-dose Tenormin for a beta sury. We will add Toradol for pain control. We will stop his fentanyl. We will discontinue the IV fluids and [place] catheter. We will also discontinue the arterial line. We will leave the Manuel per the patient's request until we take the chest tubes out. We will leave the patient in the ICU today for pulmonary toilet and pain control. Qualifiers: Coronary Disease-Associated Artery/Lesion type: [place] artery [place] vs. transplanted heart: [place] heart Associated angina: with unstable angina Qualified Code(s): I25.110 - Atherosclerotic heart disease of [place] coronary artery with unstable angina pectoris - Subjective Interval history: The patient is extubated and doing well. He was over sedated with fentanyl and we will stop that and add Toradol. He states that he is not allergic to metoprolol. When he took it, his heart rate became too low and they had to stop it. He states that he cannot take statins because of muscle pains. Vital Signs, Last 4 Hours Temp Pulse Resp BP Pulse Ox 02/19/18 07:00 99.2 F 93 20 133/82 96 02/19/18 06:00 99.3 F 92 18 125/78 98 02/19/18 05:00 99.3 F 95 24 124/79 97 02/19/18 04:00 99.0 F 92 18 123/76 98 02/19/18 03:56 93 02/19/18 03:43 16 119/71 98 Oxgyen Flow Rate Oxygen Flow Rate (LPM) 2 Clinical Data, last 8 Hours Output, Chest Tube Drainage 2 Amount [Mediastinal #3] Output, Chest Tube Drainage 0 Amount [Mediastinal #3] Output, Chest Tube Drainage 0 Amount [Mediastinal #3] Output, Chest Tube Drainage 5 Amount [Mediastinal #3] Output, Chest Tube Drainage 0 Amount [Mediastinal #3] Output, Chest Tube Drainage 0 Amount [Mediastinal #3] Output, Chest Tube Drainage 10 Amount [Mediastinal #2] Output, Chest Tube Drainage 0 Amount [Mediastinal #2] Output, Chest Tube Drainage 0 Amount [Mediastinal #2] Output, Chest Tube Drainage 0 Amount [Mediastinal #2] Output, Chest Tube Drainage 0 Amount [Mediastinal #2] Output, Chest Tube Drainage 0 Amount [Mediastinal #2] Output, Chest Tube Drainage 8 Amount [Mediastinal #1] Output, Chest Tube Drainage 8 Amount [Mediastinal #1] Output, Chest Tube Drainage 16 Amount [Mediastinal #1] Output, Chest Tube Drainage 12 Amount [Mediastinal #1] Output, Chest Tube Drainage 0 Amount [Mediastinal #1] Output, Chest Tube Drainage 4 Amount [Mediastinal #1] Weight 02/17/18 02/18/18 02/19/18 23:59 23:59 23:59 Weight 96.1 kg Lungs are clear to percussion and auscultation. Heart is in a normal sinus rhythm. All incisions are healing well without signs of infection and the sternum is stable. Chest tube drainage is minimal and there is no air leak. - Labs 02/19/18 03:30 02/19/18 03:30 Lab Results, Last 24 hours 02/18/18 02/18/18 02/18/18 12:10 12:10 12:10 WBC 14.9 H D Hgb 12.7 L D Hct 37.1 L Plt Count 82 L INR 1.2 APTT 30.2 D Sodium 138 Potassium 3.9 Chloride 108 H Carbon Dioxide 26 BUN 11 Creatinine 0.65 L Glucose 112 H Calcium 7.8 L Magnesium 2.6 02/18/18 02/18/18 02/19/18 16:10 16:10 03:30 WBC 25.4 H D 20.6 H Hgb 13.4 12.8 L Hct 40.1 38.7 Plt Count 116 L 109 L INR APTT Sodium 139 Potassium 4.4 Chloride 108 H Carbon Dioxide 25 BUN 11 Creatinine 0.67 L Glucose 177 H Calcium 8.0 L Magnesium 02/19/18 02/19/18 03:30 03:30 WBC Hgb Hct Plt Count INR 1.1 APTT 28.0 Sodium 138 Potassium 5.0 Chloride 108 H Carbon Dioxide 22 L BUN 12 Creatinine 0.76 Glucose 153 H Calcium 8.0 L Magnesium 2.0 - VTE Documentation of Mechanical Device: Graduated compression elastic hosiery Consult Discharge Plan - Plan Referrals: Villa Chan DO [Primary Care Provider] - 02/18/18 12:00 pm
[2018-02-19] MEDS: Beclomethasone 80mcg MDI IH SCH ×2 (07:53→20:34)
[2018-02-19] MEDS: *HR* GlipiZIDE XL (24 HR) 10 MG TABLET PO SCH ×2 (08:37→17:29)
[2018-02-19] MEDS: Chlorhexidine Rinse 15 ML MOUTHWASH MM SCH ×2 (08:53→19:46)
[2018-02-19] MEDS: Aspirin Enteric Coated 81 MG Tablet PO SCH (08:53)
[2018-02-19] MEDS: ALPRAZolam 0.5 MG TABLET PO PRN (08:58)
[2018-02-19] MEDS: Ketorolac 15 MG/ML VIAL IVP SCH ×3 (11:38→23:39)
[2018-02-19] MEDS: Norepinephrine 4 MG in D5% in Water 250 ML IVC SCH (12:25)
[2018-02-19] MEDS: Ondansetron 4 MG/2 ML VIAL IVP PRN (15:51)
[2018-02-19] MEDS: Insulin LISPRO 300 UNITS/3 ML VIAL SQ SCH (15:54)
--- NOTE | 2018-02-19 19:20 | Electrocardiograph Report ---
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
[2018-02-19] MEDS ORDERED: Insulin LISPRO 300 UNITS/3 ML VIAL SQ SCH (21:00)
[2018-02-20] MEDS ORDERED: GuaiFENesin/Dextromethorphan TABLET PO PRN (00:57)
[2018-02-20] MEDS: *HR* OxyCODONE/APAP 5/325 TABLET PO PRN ×3 (02:47→16:00)
[2018-02-20] MEDS: *HR* HYDROcodone/Acet 5/325 mg TABLET PO PRN ×2 (04:11→20:21)
[2018-02-20 04:19] LABS: Basophils % 0.2 %; Hemoglobin 11.3 g/dL (12.9-16.9); Immature Granulocytes % 0.6 % (0-4); Red Cell Distribution Width 13.2 % (11.5-14.5)
[2018-02-20 04:21] LABS: Eosinophils # 0.1 K/mcL (0.0-0.6); Eosinophils % 0.7 %; Hematocrit 34.3 % (37.5-50.1); Immature Platelets 6.7 % (1.1-6.1); Lymphocytes # 3.6 K/mcL (0.6-4.6); Mean Corpuscular HGB Conc 32.9 g/dL (31.6-35.5); Mean Corpuscular Hemoglobin 29.7 pg (28.0-33.3); Mean Platelet Volume 11.1 fL (9.4-12.4); Monocytes % 12.1 %; Neutrophils # 11.1 K/mcL (1.6-8.9); Red Blood Count 3.81 M/mcL (4.19-5.50); Segmented Neutrophils % 65.4 %
[2018-02-20 04:28] LABS: Platelet Count 84 K/mcL (140-400)
[2018-02-20 04:38] LABS: BUN/Creatinine Ratio 21 (6-26); Blood Urea Nitrogen 21 mg/dL (6-20); Calcium 8.8 mg/dL (8.6-10.3); Carbon Dioxide 31 mEq/L (23-29); Chloride 103 mEq/L (98-107); Glucose 171 mg/dL (70-105); Osmolality,Calculated 291 (280-300); Potassium 4.7 mEq/L (3.5-5.1); Sodium 137 mEq/L (136-145); eGFR For African Americans > 60 (> 60); eGFR For Non-African Americans > 60 (> 60)
[2018-02-20] MEDS: Nitroglycerin 25 MG/250 ML INFUS..BTL IVC SCH (04:43)
[2018-02-20] MEDS: Ketorolac 15 MG/ML VIAL IVP SCH ×4 (05:50→23:09)
--- NOTE | 2018-02-20 06:13 | Cardiothoracic Progress Note ---
Date of Encounter: 02/20/18 Time of Encounter: 06:11 - Assessment and plan (1) CAD (coronary artery disease) Current Visit: Yes Status: Chronic The patient remained hemodynamic stable overnight. The chest tubes were removed. The patient will be transferred to the stepdown unit today. The assessment and plan as outlined above was discussed with the patient and/or family members who expressed understanding and agreement. All questions were answered. Qualifiers: Coronary Disease-Associated Artery/Lesion type: [place] artery [place] vs. transplanted heart: [place] heart Associated angina: with unstable angina Qualified Code(s): I25.110 - Atherosclerotic heart disease of [place] coronary artery with unstable angina pectoris - Subjective Procedure(s) Performed: POD#2 S/P CABG3 Interval history: The patient has remained hemodynamic stable. He has no complaints of substernal chest pain. Vital Signs, Last 4 Hours Temp Pulse Resp BP Pulse Ox 02/20/18 04:57 98.3 F 02/20/18 04:22 16 93 02/20/18 04:17 70 02/20/18 04:00 70 19 110/65 97 02/20/18 03:00 73 21 102/65 94 Oxgyen Flow Rate Oxygen Flow Rate (LPM) 2 Clinical Data, last 8 Hours Output, Chest Tube Drainage 20 Amount [Mediastinal #3] Output, Chest Tube Drainage 4 Amount [Mediastinal #3] Output, Chest Tube Drainage 8 Amount [Mediastinal #2] Output, Chest Tube Drainage 8 Amount [Mediastinal #1] Output, Chest Tube Drainage 3 Amount [Mediastinal #1] Weight 02/18/18 02/19/18 02/20/18 23:59 23:59 23:59 Weight 100.2 kg - Physical Examination General: Conversant, No Apparent Distress Neck: No JVD, Normal carotid pulses Cardiac: Reg Rate and Rhythm, Normal S1 and S2, No Murmur Incision: No signs of infection, Dry/intact dressing Sternum: Stable Chest tubes: Minimal drainage, Other (No air leak) Pacing Wires: In place Lungs: Normal Breath Sounds, No Wheeze, Rales, Rhonchi Neuro: Alert and responsive, No focal deficits noted Vascular: Normal capillary refill Extremities: No Clubbing, No Cyanosis, No Edema - Labs 02/20/18 03:55 02/20/18 03:55 Lab Results, Last 24 hours 02/20/18 02/20/18 03:55 03:55 WBC 16.9 H Hgb 11.3 L D Hct 34.3 L Plt Count 84 L Sodium 137 Potassium 4.7 Chloride 103 Carbon Dioxide 31 H BUN 21 H Creatinine 0.98 Glucose 171 H Calcium 8.8 - VTE Documentation of Mechanical Device: Graduated compression elastic hosiery Consult Discharge Plan - Plan Referrals: Villa Chan DO [Primary Care Provider] - 02/18/18 12:00 pm
[2018-02-20] MEDS: Beclomethasone 80mcg MDI IH SCH ×2 (07:58→20:54)
[2018-02-20] MEDS: Aspirin Enteric Coated 81 MG Tablet PO SCH (08:12)
[2018-02-20] MEDS: Chlorhexidine Rinse 15 ML MOUTHWASH MM SCH ×2 (08:13→20:12)
[2018-02-20] MEDS: Insulin LISPRO 300 UNITS/3 ML VIAL SQ SCH ×4 (08:14→21:20)
[2018-02-20] MEDS: *HR* GlipiZIDE XL (24 HR) 10 MG TABLET PO SCH ×2 (08:14→17:37)
[2018-02-20] MEDS ORDERED: Dextrose Gel 15 GM/37.5 ML TUBE PO PRN ×2 (10:53)
[2018-02-20] MEDS ORDERED: *HR* Dextrose 50 % in Water (Syg) 50 ML SYRINGE IVP PRN (10:53)
[2018-02-20] MEDS ORDERED: Nitroglycerin 0.4 MG TAB.SUBL SL PRN (10:53)
[2018-02-20] MEDS ORDERED: D5% in Water 1,000 ML IVC PRN (10:53)
[2018-02-20] MEDS ORDERED: Acetaminophen 325 MG TABLET PO PRN (10:53)
[2018-02-20] MEDS ORDERED: *HR* Promethazine 25 MG/ML VIAL IVP PRN (10:53)
[2018-02-20] MEDS ORDERED: Insulin Regular, Human 100 UNIT/ML IV PRN (10:53)
[2018-02-20] MEDS ORDERED: Naloxone 0.4 MG/ML INJ IVP PRN (10:53)
[2018-02-20] MEDS: *HR* Metformin 500 MG TABLET PO SCH (12:40)
[2018-02-20] MEDS: ALPRAZolam 0.5 MG TABLET PO PRN ×2 (12:54→23:09)
[2018-02-20] MEDS: GuaiFENesin/Dextromethorphan TABLET PO PRN (23:15)
[2018-02-21] MEDS: Ondansetron 4 MG/2 ML VIAL IVP PRN (03:48)
[2018-02-21] MEDS: *HR* HYDROcodone/Acet 5/325 mg TABLET PO PRN ×3 (03:48→20:55)
[2018-02-21 04:15] LABS: Basophils % 0.2 %; Eosinophils # 0.2 K/mcL (0.0-0.6); Eosinophils % 1.3 %; Hematocrit 33.4 % (37.5-50.1); Immature Granulocytes % 0.5 % (0-4); Lymphocytes # 2.9 K/mcL (0.6-4.6); Lymphocytes % 19.2 %; Mean Corpuscular HGB Conc 32.9 g/dL (31.6-35.5); Mean Corpuscular Hemoglobin 29.9 pg (28.0-33.3); Mean Corpuscular Volume 90.8 fL (83.0-100.0); Mean Platelet Volume 10.9 fL (9.4-12.4); Monocytes # 1.7 K/mcL (0.0-1.3); Monocytes % 11.3 %; Neutrophils # 10.1 K/mcL (1.6-8.9); Platelet Count 104 K/mcL (140-400); Red Blood Count 3.68 M/mcL (4.19-5.50); Red Cell Distribution Width 13.1 % (11.5-14.5); Segmented Neutrophils % 67.5 %
[2018-02-21 04:41] LABS: BUN/Creatinine Ratio 29 (6-26); Blood Urea Nitrogen 25 mg/dL (6-20); Calcium 8.8 mg/dL (8.6-10.3); Carbon Dioxide 28 mEq/L (23-29); Chloride 103 mEq/L (98-107); Glucose 112 mg/dL (70-105); Osmolality,Calculated 291 (280-300); Potassium 4.4 mEq/L (3.5-5.1); Sodium 138 mEq/L (136-145); eGFR For African Americans > 60 (> 60); eGFR For Non-African Americans > 60 (> 60)
[2018-02-21] MEDS: Ketorolac 15 MG/ML VIAL IVP SCH ×4 (06:21→23:58)
[2018-02-21] MEDS: Beclomethasone 80mcg MDI IH SCH ×2 (07:24→20:06)
[2018-02-21] MEDS: Insulin LISPRO 300 UNITS/3 ML VIAL SQ SCH ×4 (08:06→21:04)
[2018-02-21] MEDS: *HR* Metformin 500 MG TABLET PO SCH (08:13)
[2018-02-21] MEDS: Aspirin Enteric Coated 81 MG Tablet PO SCH (08:13)
[2018-02-21] MEDS: *HR* GlipiZIDE XL (24 HR) 10 MG TABLET PO SCH ×2 (08:13→16:47)
[2018-02-21] MEDS: ALPRAZolam 0.5 MG TABLET PO PRN ×2 (08:14→20:55)
[2018-02-21] MEDS: *HR* OxyCODONE/APAP 5/325 TABLET PO PRN ×2 (08:14→14:41)
[2018-02-21] MEDS: Chlorhexidine Rinse 15 ML MOUTHWASH MM SCH ×2 (08:14→20:53)
--- NOTE | 2018-02-21 08:58 | Cardiothoracic Progress Note ---
Date of Encounter: 02/21/18 Time of Encounter: 08:56 - Assessment and plan (1) CAD (coronary artery disease) Current Visit: Yes Status: Chronic Hopefully, the patient will continue to increase the amount of ambulation he does. It is possible that he could be discharged on Saturday. Qualifiers: Coronary Disease-Associated Artery/Lesion type: [place] artery [place] vs. transplanted heart: [place] heart Associated angina: with unstable angina Qualified Code(s): I25.110 - Atherosclerotic heart disease of [place] coronary artery with unstable angina pectoris - Subjective Interval history: The patient has no complaints. He is beginning to ambulate. Vital Signs, Last 4 Hours Pulse Resp BP Pulse Ox 02/21/18 08:20 90 02/21/18 08:05 73 16 94 02/21/18 07:55 79 18 106/67 93 02/21/18 07:24 22 94 Oxgyen Flow Rate Oxygen Flow Rate (LPM) 2 Clinical Data, last 8 Hours Output, Urine Amount 200 Output, Urine Amount 0 Weight 02/19/18 02/20/18 02/21/18 23:59 23:59 23:59 Weight 100.2 kg 91.9 kg Lungs are clear to percussion and auscultation. Heart is in a normal sinus rhythm. All incisions are healing well without signs of infection and the sternum is stable. Pacing wires were removed. - Labs 02/21/18 00:01 02/21/18 00:01 Lab Results, Last 24 hours 02/21/18 02/21/18 00:01 00:01 WBC 14.9 H Hgb 11.0 L Hct 33.4 L Plt Count 104 L Sodium 138 Potassium 4.4 Chloride 103 Carbon Dioxide 28 BUN 25 H Creatinine 0.86 Glucose 112 H Calcium 8.8 - VTE Documentation of Mechanical Device: Graduated compression elastic hosiery Consult Discharge Plan - Plan Referrals: Frank Clinton MD [Partnered Physician] - (office will call with follow up appointment spoke with Sean in Cardiology office on 02-20-18 @[phone]) Deniz Romo MD [Partnered Physician] - 03/27/18 2:00 pm Villa Chan DO [Primary Care Provider] - 02/25/18 1:30 pm
[2018-02-21] MEDS: GuaiFENesin/Dextromethorphan TABLET PO PRN (14:41)
[2018-02-21] MEDS: *HR* Heparin 5,000 UNIT/ML VIAL SQ SCH (17:35)
[2018-02-22] MEDS: *HR* HYDROcodone/Acet 5/325 mg TABLET PO PRN ×2 (03:48→09:55)
[2018-02-22] MEDS: *HR* Heparin 5,000 UNIT/ML VIAL SQ SCH ×2 (06:11→16:49)
[2018-02-22] MEDS: Ketorolac 15 MG/ML VIAL IVP SCH ×4 (06:11→23:38)
[2018-02-22] MEDS: Beclomethasone 80mcg MDI IH SCH ×2 (07:36→20:28)
[2018-02-22] MEDS: Insulin LISPRO 300 UNITS/3 ML VIAL SQ SCH ×4 (07:50→20:29)
[2018-02-22] MEDS: *HR* GlipiZIDE XL (24 HR) 10 MG TABLET PO SCH ×2 (07:51→16:49)
[2018-02-22] MEDS: *HR* Metformin 500 MG TABLET PO SCH (07:51)
[2018-02-22] MEDS: Chlorhexidine Rinse 15 ML MOUTHWASH MM SCH ×2 (07:51→19:42)
[2018-02-22] MEDS: Aspirin Enteric Coated 81 MG Tablet PO SCH (07:51)
--- NOTE | 2018-02-22 09:47 | Cardiothoracic Progress Note ---
Date of Encounter: 02/22/18 Time of Encounter: 09:45 - Assessment and plan (1) CAD (coronary artery disease) Current Visit: Yes Status: Chronic The patient has 2 peripheral IVs and we will discontinue his central line. It is okay for the patient to shower off telemetry. We will plan to discharge him tomorrow. Qualifiers: Coronary Disease-Associated Artery/Lesion type: [place] artery [place] vs. transplanted heart: [place] heart Associated angina: with unstable angina Qualified Code(s): I25.110 - Atherosclerotic heart disease of [place] coronary artery with unstable angina pectoris - Subjective Interval history: The patient is ambulating and doing well. He has no complaints. Vital Signs, Last 4 Hours Temp Pulse Resp BP Pulse Ox 02/22/18 07:36 18 96 02/22/18 07:26 98.7 F 67 18 96/65 93 [place] Flow Rate Oxygen Flow Rate (LPM) 2 Clinical Data, last 8 Hours Output, Urine Amount 200 Output, Urine Amount 200 Weight 02/20/18 02/21/18 02/22/18 23:59 23:59 23:59 Weight 91.9 kg 93.1 kg Lungs are clear to percussion and auscultation. Heart is in a normal sinus rhythm. All incisions are healing well without signs of infection and the sternum is stable. - Labs 02/21/18 00:01 02/21/18 00:01 - VTE Documentation of Mechanical Device: Graduated compression elastic hosiery Consult Discharge Plan - Plan Referrals: Frank Clinton MD [Partnered Physician] - (office will call with follow up appointment spoke with Sean in Cardiology office on 02-20-18 @1544) Deniz Romo MD [Partnered Physician] - 03/27/18 2:00 pm Villa Chan DO [Primary Care Provider] - 02/25/18 1:30 pm
[2018-02-22] MEDS: *HR* OxyCODONE/APAP 5/325 TABLET PO PRN ×2 (11:47→19:41)
[2018-02-23] MEDS: *HR* OxyCODONE/APAP 5/325 TABLET PO PRN ×5 (01:10→22:13)
[2018-02-23] MEDS: *HR* Heparin 5,000 UNIT/ML VIAL SQ SCH ×2 (05:59→17:03)
[2018-02-23] MEDS: Ketorolac 15 MG/ML VIAL IVP SCH ×4 (05:59→23:33)
[2018-02-23] MEDS: Insulin LISPRO 300 UNITS/3 ML VIAL SQ SCH ×4 (07:45→20:55)
[2018-02-23] MEDS: Chlorhexidine Rinse 15 ML MOUTHWASH MM SCH ×2 (07:46→20:16)
[2018-02-23] MEDS: *HR* Metformin 500 MG TABLET PO SCH (07:46)
[2018-02-23] MEDS: *HR* GlipiZIDE XL (24 HR) 10 MG TABLET PO SCH ×2 (07:46→16:09)
[2018-02-23] MEDS: Aspirin Enteric Coated 81 MG Tablet PO SCH (07:46)
[2018-02-23] MEDS: Beclomethasone 80mcg MDI IH SCH ×2 (07:51→20:20)
--- NOTE | 2018-02-23 08:05 | Cardiothoracic Progress Note ---
Date of Encounter: 02/23/18 Time of Encounter: 08:04 - Assessment and plan (1) CAD (coronary artery disease) Current Visit: Yes Status: Chronic Hopefully, the patient can be discharged tomorrow to an extended care facility for further rehabilitation. Qualifiers: Coronary Disease-Associated Artery/Lesion type: [place] artery [place] vs. transplanted heart: [place] heart Associated angina: with unstable angina Qualified Code(s): I25.110 - Atherosclerotic heart disease of [place] coronary artery with unstable angina pectoris - Subjective Interval history: The patient has no complaints. He states that he does want to go to a rehabilitation facility upon discharge. Vital Signs, Last 4 Hours Temp Pulse Resp BP Pulse Ox 02/23/18 07:51 16 94 02/23/18 07:09 98.9 F 73 18 141/81 94 02/23/18 04:30 71 [place]gy[place] Flow Rate Oxygen Flow Rate (LPM) 2 Clinical Data, last 8 Hours Output, Urine Amount 200 Weight 02/21/18 02/22/18 02/23/18 23:59 23:59 23:59 Weight 93.1 kg 94.4 kg Lungs are clear to percussion and auscultation. Heart is in a normal sinus rhythm. All incisions are healing well without signs of infection and the sternum is stable. - Labs 02/21/18 00:01 02/21/18 00:01 - VTE Documentation of Mechanical Device: Graduated compression elastic hosiery Consult Discharge Plan - Plan Referrals: Frank Clinton MD [Partnered Physician] - (office will call with follow up appointment spoke with Sean in Cardiology office on 02-20-18 @[phone]) Deniz Romo MD [Partnered Physician] - 03/27/18 2:00 pm Villa Chan DO [Primary Care Provider] - 02/25/18 1:30 pm
[2018-02-24] MEDS: Ondansetron 4 MG/2 ML VIAL IVP PRN (00:26)
[2018-02-24] MEDS: *HR* Heparin 5,000 UNIT/ML VIAL SQ SCH (06:11)
[2018-02-24] MEDS: Ketorolac 15 MG/ML VIAL IVP SCH (06:11)
[2018-02-24 06:17] LABS: Basophils # 0.1 K/mcL (0.0-0.2); Basophils % 0.4 %; Eosinophils # 0.4 K/mcL (0.0-0.6); Eosinophils % 3.2 %; Hematocrit 34.8 % (37.5-50.1); Hemoglobin 11.5 g/dL (12.9-16.9); Immature Granulocytes % 0.8 % (0-4); Lymphocytes # 2.8 K/mcL (0.6-4.6); Lymphocytes % 23.8 %; Mean Corpuscular Volume 87.7 fL (83.0-100.0); Mean Platelet Volume 10.1 fL (9.4-12.4); Monocytes % 8.3 %; Neutrophils # 7.6 K/mcL (1.6-8.9); Platelet Count 233 K/mcL (140-400); Red Blood Count 3.97 M/mcL (4.19-5.50); Red Cell Distribution Width 13.2 % (11.5-14.5); Segmented Neutrophils % 63.5 %
[2018-02-24 06:41] LABS: BUN/Creatinine Ratio 21 (6-26); Blood Urea Nitrogen 17 mg/dL (6-20); Calcium 9.2 mg/dL (8.6-10.3); Carbon Dioxide 25 mEq/L (23-29); Chloride 105 mEq/L (98-107); Glucose 115 mg/dL (70-105); Osmolality,Calculated 290 (280-300); Potassium 3.8 mEq/L (3.5-5.1); Sodium 139 mEq/L (136-145); eGFR For African Americans > 60 (> 60); eGFR For Non-African Americans > 60 (> 60)
[2018-02-24 07:00] VITALS: BP 151/87
[2018-02-24] MEDS: *HR* OxyCODONE/APAP 5/325 TABLET PO PRN (07:04)
--- NOTE | 2018-02-24 07:22 | Discharge Summary ---
Orders not resulted at time of discharge: Pending orders 02/15/18 08:30 Red Blood Cells [BBK] Routine Type and Screen [BBK] Routine Date of Encounter: 02/24/18 Time of Encounter: 07:17 - Discharge Diagnosis (1) CAD (coronary artery disease) Priority: Primary Status: Chronic Qualifiers: Coronary Disease-Associated Artery/Lesion type: [place] artery [place] vs. transplanted heart: [place] heart Associated angina: with unstable angina Qualified Code(s): I25.110 - Atherosclerotic heart disease of [place] coronary artery with unstable angina pectoris - Hospital Course Hospital course: Mr. Garner is a 58 year old male The patient is a 58-year-old gentleman who presented with chest pain. He has a history of a previous myocardial infarction and stent placement. He was on Plavix. Cardiac catheterization revealed triple vessel disease and he was referred for surgery. The Plavix was stopped. On 02/18/2018, I took him to the operating room for coronary artery bypass grafting 3, utilizing the left internal mammary artery. On February 20, the chest tubes and pacing wires were removed and he was transferred to the floor. He otherwise did well and was discharged on February 24. At that time he was afebrile. Lungs were clear to percussion and auscultation. Heart was in a normal sinus rhythm. All incisions were healing well without signs of infection and the sternum was stable. Discharge medications are on the med rec and include narcotics for pain. I did check the [place] automated Rx reporting system. He was postoperative and was given a one-week supply. Appropriate precautions were given. He was returned to his previous a regular diet. He was to avoid heavy lifting for a total of 3 months after surgery, but to walk as much as possible. He was to avoid driving for 1 month. He was to follow-up and see me in the office in 4 weeks as directed. 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 He was to call sooner for any difficulties. - Time Spent with Patient Total time spent providing and/or coordinating discharge services: - Discharge Medications Prescriptions: Atenolol [Tenormin] 25 mg PO DAILY #30 tablet HYDROcodone/Acet 5/325 mg [[place] 5-325 mg] 1 tab PO Q6H PRN 7 Days #20 tablet PRN Reason: Pain Home Medications: ALPRAZolam [Xanax 0.5 MG Tablet] 0.5 mg PO BID PRN 07/29/15 [History] Budesonide/Formoterol 160/4.5 [Symbicort 160/4.5] 2 puff IH BIDR PRN 07/29/15 [ History] Fluticasone Propionate [Flovent Diskus] 1 puff IH BID PRN 07/29/15 [History] Aspirin Enteric Coated [Aspirin EC] 81 mg PO DAILY 07/31/15 [History] Dulaglutide [Trulicity] 0.75 mg SQ QWEEK 01/23/18 [History] GlipiZIDE [Glipizide ER] 10 mg PO BID 01/23/18 [History] Metformin HCl [Metformin HCl ER] 500 mg PO DAILY 01/23/18 [History] Nitroglycerin [Nitrostat] 0.4 mg PO Q5MIN PRN 01/23/18 [History] Albuterol Sulfate [Albuterol Inhaler] 2 puff IH Q4HR PRN inhaler 01/26/18 [Rx] Clopidogrel [Plavix] 75 mg PO DAILY #30 tablet 01/26/18 [Rx] Rosuvastatin [Crestor] 20 mg PO HS #30 tablet 01/26/18 [Rx] Montelukast [Singulair] 10 mg PO DAILY 02/12/18 [History] Atenolol [Tenormin] 25 mg PO DAILY #30 tablet 02/24/18 [Rx] HYDROcodone/Acet 5/325 mg [[place] 5-325 mg] 1 tab PO Q6H PRN 7 Days #20 tablet [Rx] Allergies/Adverse Reactions: 3 Allergy/AdvReac Type Severity Reaction Status Date / Time atorvastatin [From Lipitor] AdvReac Nausea Verified 01/23/18 09:12 metoprolol AdvReac Nausea Verified 01/23/18 09:12 Date of admission: 02/11/18 18:21 Primary care physician: Ayleen Tan Consults: 02/11/18 12:33 Consult to Cardiac Rehabilitation-Phase1 [CONS] Routine Comment: Reason for Consult: post op diagnostic cath Call Completed: Yes 02/18/18 11:55 Consult to Battery Inspector [CONS] Routine Reason for SW Consult: open heart 02/21/18 10:20 Consult to Physical Therapy [CONS] Routine Comment: Evaluate, develop and implement POC Reason for Consult: eval for rehab post CABG Does patient have active BEDREST order?: No Is patient medically & hemodynamically stable?: Yes Patient assessed for mobility or mobilized this visit?: Yes Procedure(s) Performed: 02/18/2018. Coronary artery bypass grafting 3, utilizing the left internal mammary artery. Discharging clinician: Deniz Romo Anticipated date of discharge: 02/24/18 Physical Examination Vital Signs, Last 4 Hours Temp Pulse Resp BP Pulse Ox 02/24/18 06:57 99.3 F 65 16 151/87 94 02/24/18 04:35 68 02/24/18 04:07 16 92 02/24/18 03:59 99.3 F 63 20 135/85 94 - Patient Status Disposition: Home, Self-Care Functional capacity at discharge: independent ambulation Overall status at discharge: patient is progressing back to baseline - Discharge Instructions Follow Up With: Frank Clinton MD [Partnered Physician] - (office will call with follow up appointment spoke with Sean in Cardiology office on 02-20-18 @0970) Deniz Romo MD [Partnered Physician] - 03/27/18 2:00 pm Villa Chan DO [Primary Care Provider] - 02/25/18 1:30 pm [facility] Aspirin Cont/Prescribed at DC: Yes Beta [place] Cont/Prescribed at DC: Yes Statin Cont/Prescribed at DC: Yes MARY/ARB Cont/Prescribed at DC: Not indicated - VTE Documentation of Mechanical Device: Graduated compression elastic hosiery
[2018-02-24] MEDS: Insulin LISPRO 300 UNITS/3 ML VIAL SQ SCH (07:36)
[2018-02-24] MEDS: Beclomethasone 80mcg MDI IH SCH (08:03)
[2018-02-24] MEDS: Aspirin Enteric Coated 81 MG Tablet PO SCH (08:54)
[2018-02-24] MEDS: *HR* GlipiZIDE XL (24 HR) 10 MG TABLET PO SCH (08:54)
[2018-02-24] MEDS: *HR* Metformin 500 MG TABLET PO SCH (08:54)
== END 2018-02-24 10:18 | disposition home or self-care (01) | DRG 234 ==
LOC: INVDIALAB 09:33 → 3BNU 13:04 → ICNU 02-18 08:08 → 2NNU 02-20 14:26
PROVIDERS: ADMIT Internal Medicine; ATTEND Thoracic Surgery (Cardiothoracic Vascular Surgery)